=== PATIENT | female | born 1980 | race Hispanic/Latino ===

== ENCOUNTER 2017-10-15 11:44 | Emergency (ER) | payer SELFPAY ==
--- NOTE | 2017-10-15 12:09 | ER ---
Nurse's Notes [facility] Name: Hilary Mcmillan Age: 37 yrs Sex: Female : 1980 Arrival Date: 10/15/2017 Time: 11:49 Bed 11 Private MD: Diagnosis: Scabies Presentation: 10/15 12:05 Presenting complaint: Patient states: rash started on her arms at the end of August and sv has moved to her back. Transition of care: patient was not received from another setting of care. Onset of symptoms was August 2017. Initial Sepsis Screen: Does the patient meet any 2 criteria? No. Patient's initial sepsis screen is negative. Does the patient have a suspected source of infection? No. Patient's initial sepsis screen is negative. Care prior to arrival: None. 12:05 Method Of Arrival: Ambulatory sv 12:05 Acuity: USHA 5 sv 12:12 Risk Assessment: Do you want to hurt yourself or someone else? Patient reports no sv desire to harm self or others. Triage Assessment: 12:05 General: Appears in no apparent distress. comfortable, Behavior is calm, cooperative, sv appropriate for age. Pain: Denies pain. EENT: No signs and/or symptoms were reported regarding the EENT system. Neuro: Level of Consciousness is awake, alert, obeys commands, Oriented to person, place, time, situation, Moves all extremities. Full function Gait is steady. Respiratory: Respiratory effort is even, unlabored, Respiratory pattern is regular, symmetrical. GI: : No signs and/or symptoms were reported regarding the genitourinary system. Derm: Skin is normal, Rash noted that is raised, on back, right arm and left arm. Musculoskeletal: No signs and/or symptoms reported regarding the musculoskeletal system. 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 - Social history:: Smoking status: Patient/guardian denies using tobacco. - Ebola Screening: : No symptoms or risks identified at this time. Screenin:12 Abuse screen: Denies threats or abuse. Denies injuries from another. Nutritional sv screening: No deficits noted. Tuberculosis screening: No symptoms or risk factors identified. Fall Risk None identified. Assessment: 12:12 Reassessment: See triage assessment. sv Vital Signs: 12:06 BP 126 / 73; Pulse 88; Resp 18; Pulse Ox 100% ; Weight 81.65 kg; Height 5 ft. 4 in. sv (162.56 cm); Pain 0/10; 12:06 Body Mass Index 30.90 (81.65 kg, 162.56 cm) sv ED Course: 11:49 Patient arrived in ED. as 11:55 Ruperto Smiley PA is PHCP. [facility] 11:55 Diogo Leigh MD is Attending Physician. [facility] 12:05 Triage completed. sv 12:06 Arm band placed on right wrist. sv 12:11 Meagan Car RN is Primary Nurse. sv 12:12 Patient has correct armband on for positive identification. sv 12:13 No provider procedures requiring assistance completed. Patient did not have IV access sv during this emergency room visit. Administered Medications: No medications were administered Outcome: 12:08 Discharge ordered by . [facility] 12:25 Patient left the ED. sv 12:25 Discharged to home ambulatory. sv 12:25 Condition: stable 12:25 Discharge instructions given to patient, Instructed on discharge instructions, follow up and referral plans. medication usage, Demonstrated understanding of instructions, follow-up care, medications, Prescriptions given X 1. Signatures: Meagan Car RN RN Ruperto Smiley PA PA jmm Martinez, Amelia as
--- NOTE | 2017-10-15 12:09 | EDPHYS ---
Physician Documentation [facility] Name: Hilary Mcmillan Age: 37 yrs Sex: Female : 1980 Arrival Date: 10/15/2017 Time: 11:49 Bed 11 Private MD: ED Physician Diogo Leigh HPI: 10/15 12:00 This 37 yrs old Female presents to ER via Ambulatory with complaints of Rash. [facility] 12:00 The patient's rash thought to be caused by an unknown cause. The rash is located on the [facility] left arm and right arm and back. Onset: The symptoms/episode began/occurred gradually. Associated signs and symptoms: Pertinent positives: itching, Pertinent negatives: fever, Pain. Patient complains of a rash to her arms and back which is pruritic. The patient denies fever. The rash initially began around her hands and has spread to her back. The patient is concerned the rash may be due to scabies. . 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 - Social history:: Smoking status: Patient/guardian denies using tobacco. - Ebola Screening: : No symptoms or risks identified at this time. ROS: 12:07 Respiratory: Negative for shortness of breath, cough, wheezing, and pleuritic chest [facility] pain. 12:07 Constitutional: Negative for fever. 12:07 Skin: Positive for erythema, rash. 12:07 Neuro: Negative for weakness. 12:07 All other systems are negative. Exam: 12:07 Constitutional: This is a well developed, well nourished patient who is awake, alert, jmm and in no acute distress. Head/Face: atraumatic. Cardiovascular: Regular rate and rhythm. No edema appreciated Respiratory: Normal respirations, no respiratory distress appreciated Back: Normal ROM MS/ Extremity: Moves all extremities, no obvious deformities appreciated, no edema noted to the lower extremities Neuro: Awake and alert, normal gait Psych: Behavior is normal, Mood is normal, Patient is cooperative and pleasant 12:07 Skin: mild erythema appreciated to the forearms with linear streaking, non tender to palpation. 12:07 Neuro: Orientation: is normal, Mentation: is normal, Memory: is normal. Vital Signs: 12:06 BP 126 / 73; Pulse 88; Resp 18; Pulse Ox 100% ; Weight 81.65 kg; Height 5 ft. 4 in. sv (162.56 cm); Pain 0/10; 12:06 Body Mass Index 30.90 (81.65 kg, 162.56 cm) sv MDM: 12:04 Patient medically screened. [facility] 12:05 Data reviewed: vital signs, nurses notes. [facility] 12:07 Counseling: I had a detailed discussion with the patient and/or guardian regarding: the [facility] historical points, exam findings, and any diagnostic results supporting the discharge/admit diagnosis, the need for outpatient follow up, to return to the emergency department if symptoms worsen or persist or if there are any questions or concerns that arise at home. Administered Medications: No medications were administered Disposition: 17:53 Co-signature as Attending Physician, Diogo Leigh MD. rn Disposition: 10/15/17 12:08 Discharged to Home. Impression: Scabies. - Condition is Stable. - Discharge Instructions: Scabies. - Prescriptions for Elimite 5 % Topical Cream - apply 1 application by TOPICAL route one time Wash after 12 hours.; 60 gram. - Medication Reconciliation Form, Thank You Letter, Antibiotic Education, Prescription Opioid Use form. - Follow up: Private Physician; When: 2 - 3 days; Reason: Continuance of care. Signatures: Meagan Car RN RN Ruperto Smiley PA PA [facility] Diogo Leigh MD MD rn hemodialysis: (The following items were deleted from the chart) 12:25 12:08 10/15/2017 12:08 Discharged to Home. Impression: Scabies. Condition is Stable. sv Forms are Medication Reconciliation Form, Thank You Letter, Antibiotic Education, Prescription Opioid Use. Follow up: Private Physician; When: 2 - 3 days; Reason: Continuance of care. [facility]
[2017-10-15 12:29] VITALS: BP 126/73; O2SAT 100
== END 2017-10-15 12:25 | disposition home or self-care (01) ==
LOC: ER 11:44
DX: B86 Scabies (principal)
CPT/HCPCS: 99281

== ENCOUNTER 2017-12-01 14:14 | Emergency (ER) | payer BC, SELFPAY ==
[2017-12-01] MEDS ORDERED: ACETAMINOPHEN 500 MG TAB ONE (14:32)
--- NOTE | 2017-12-01 16:45 | EDPHYS ---
Physician Documentation [facility] Name: Hilary Mcmillan Age: 37 yrs Sex: Female : 1980 Arrival Date: 12/01/2017 Time: 14:16 Bed 11 Private MD: Iggy Graf ED Physician Iron Gonzalez HPI: 12/01 15:00 This 37 yrs old Female presents to ER via Ambulatory with complaints of Flu pm1 Symptoms. 15:00 The patient reports fever, not measured (subjective). Onset: The symptoms/episode pm1 began/occurred 2 day(s) ago. Modifying factors: Recent medications: none unaware of sick contact. Denies recent travel. Associated signs and symptoms: Pertinent positives: chills, earache, Pertinent negatives: abdominal pain, chest pain, cough, diarrhea, headache, skin rash, shortness of breath, sore throat, vomiting. Severity of symptoms: in the emergency department the symptoms are worse. The patient has not experienced similar symptoms in the past. Patient reports subjective fever over the weekend with chills. Complaining of generalized body aches and right ear pain. Complaining of lower extremity insect bites that occurred last night. 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 - Social history:: Smoking status: Patient/guardian denies using tobacco. - Ebola Screening: : Patient negative for fever greater than or equal to 101.5 degrees Fahrenheit, and additional compatible Ebola Virus Disease symptoms Patient denies exposure to infectious person Patient denies travel to an Ebola-affected area in the 21 days before illness onset No symptoms or risks identified at this time. ROS: 15:00 Neck: Negative for injury, pain, and swelling, Cardiovascular: Negative for chest pain, pm1 palpitations, and edema, Respiratory: Negative for shortness of breath, cough, wheezing, and pleuritic chest pain, Abdomen/GI: Negative for abdominal pain, nausea, vomiting, diarrhea, and constipation, Back: Negative for injury and pain, : Negative for injury, bleeding, discharge, and swelling, MS/Extremity: Negative for injury and deformity, Neuro: Negative for headache, weakness, numbness, tingling, and seizure. 15:00 Constitutional: Positive for body aches, chills, fever, Negative for poor PO intake. 15:00 ENT: Positive for ear pain, Negative for drainage from ear(s), Teeth pain sore throat. 15:00 Skin: Positive for rash, of the right lower leg. Exam: 15:00 Constitutional: This is a well developed, well nourished patient who is awake, alert, pm1 and in no acute distress. Head/Face: Normocephalic, atraumatic. Eyes: Pupils equal round and reactive to light, extra-ocular motions intact. Lids and lashes normal. Conjunctiva and sclera are non-icteric and not injected. Cornea within normal limits. Periorbital areas with no swelling, redness, or edema. 15:00 Chest/axilla: Normal chest wall appearance and motion. Nontender with no deformity. No lesions are appreciated. Cardiovascular: Regular rate and rhythm with a normal S1 and S2. No gallops, murmurs, or rubs. Normal PMI, no JVD. No pulse deficits. Respiratory: Lungs have equal breath sounds bilaterally, clear to auscultation and percussion. No rales, rhonchi or wheezes noted. No increased work of breathing, no retractions or nasal flaring. Abdomen/GI: Soft, non-tender, with normal bowel sounds. No distension or tympany. No guarding or rebound. No evidence of tenderness throughout. Back: No spinal tenderness. No costovertebral tenderness. Full range of motion. 15:00 MS/ Extremity: Pulses equal, no cyanosis. Neurovascular intact. Full, normal range of motion. 15:00 ENT: External ear(s): are unremarkable, Ear canal(s): are normal, TM's: bulging, on the right, erythema, on the right, fluid levels, on the right, rupture, is not appreciated, Nose: is normal, Mouth: is normal, Posterior pharynx: is normal, airway is patent, no erythema, no exudate, no peritonsilar mass, no pooling of secretions, no swelling. 15:00 Neck: External neck: no acute changes, C-spine: appears grossly normal, no vertebral tenderness, no crepitus. 15:00 Skin: Appearance: normal except for affected area, consistent with insect bites, mosquito, on the right bob. 15:00 Neuro: Orientation: is normal, Motor: is normal, moves all fours, Sensation: is normal, no obvious gross deficits, Gait: is steady, at a normal pace, without difficulty. Vital Signs: 14:24 BP 121 / 72; Pulse 107; Resp 16; Temp 100.7(O); Pulse Ox 99% on R/A; Weight 83.01 kg; ch Height 5 ft. 4 in. (162.56 cm); Pain 6/10; 17:15 BP 120 / 80; Pulse 89; Resp 18; Temp 99; Pulse Ox 100% on R/A; dm5 14:24 Body Mass Index 31.41 (83.01 kg, 162.56 cm) MDM: 15:13 Patient medically screened. pm1 16:44 Data reviewed: vital signs. Data interpreted: Pulse oximetry: on room air is 99 %. pm1 Interpretation: normal. Counseling: I had a detailed discussion with the patient and/or guardian regarding: the historical points, exam findings, and any diagnostic results supporting the discharge/admit diagnosis, lab results, the need for outpatient follow up, to return to the emergency department if symptoms worsen or persist or if there are any questions or concerns that arise at home. 12/01 14:26 Order name: Flu; Complete Time: 15:19 12/01 15:33 Order name: Graves Screen Profile; Complete Time: 16:44 pm1 Administered Medications: 14:26 Drug: Tylenol 1000 mg Route: PO; 17:16 Follow up: Response: No adverse reaction; Temperature is decreased dm5 Disposition: 12/01/17 16:45 Discharged to Home. Impression: Otitis media, unspecified, right ear. - Condition is Stable. - Discharge Instructions: Otitis Media, Adult. - Prescriptions for Amoxicillin 500 mg Oral Capsule - take 1 capsule by ORAL route every 8 hours for 10 days; 30 tablet. Zyrtec- D 5-120 mg Oral Tablet Sustained Release 12 hr - take 1 tablet by ORAL route every 12 hours As needed; 20 tablet. - Medication Reconciliation Form, Thank You Letter, Antibiotic Education form. - Follow up: Emergency Department; When: As needed; Reason: Worsening of condition. Follow up: Iggy Graf MD; When: 2 - 3 days; Reason: Recheck today's complaints, Continuance of care, Re-evaluation by your physician. - Problem is new. - Symptoms have improved. Addendum: 12/04/2017 10:12 Co-signature as Attending Physician, Iron Gonzalez MD I agree with the assessment and k dr plan of care. Signatures: Dispatcher [employer] EDMS Marisa Cordero, RN RN Dianne Renee RN RN dm Iron Gonzalez MD MD [facility] Octavio Garcia NP SUPERINTENDENT MAINTENANCE pm1 Corrections: (The following items were deleted from the chart) 12/01 17:16 16:45 12/01/2017 16:45 Discharged to Home. Impression: Otitis media, unspecified, right dm5 ear. Condition is Stable. Forms are Medication Reconciliation Form, Thank You Letter, Antibiotic Education, Prescription Opioid Use. Follow up: Emergency Department; When: As needed; Reason: Worsening of condition. Follow up: Iggy Graf; When: 2 - 3 days; Reason: Recheck today's complaints, Continuance of care, Re-evaluation by your physician. Problem is new. Symptoms have improved. pm1
--- NOTE | 2017-12-01 16:45 | ER ---
Nurse's Notes [facility] Name: Hilary Mcmillan Age: 37 yrs Sex: Female : 1980 Arrival Date: 12/01/2017 Time: 14:16 Bed 11 Private MD: Iggy Graf Diagnosis: Otitis media, unspecified, right ear Presentation: 12/01 14:22 Presenting complaint: Patient states: over the weekend I had chills and feverish ch feeling, I feel like there is something in my R ear. I have body aches all over. I woke up with some bites on my legs this morning. Transition of care: patient was not received from another setting of care. Onset of symptoms was November 29, 2017. Risk Assessment: Do you want to hurt yourself or someone else? Patient reports no desire to harm self or others. Initial Sepsis Screen: Does the patient meet any 2 criteria? No. Patient's initial sepsis screen is negative. Does the patient have a suspected source of infection? No. Patient's initial sepsis screen is negative. Care prior to arrival: None. 14:22 Method Of Arrival: Ambulatory 14:22 Acuity: USHA 4 Triage Assessment: 14:24 General: Appears in no apparent distress. comfortable, Behavior is calm, cooperative, ch appropriate for age. Pain: Complains of pain in right ear, generalized body ache. 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 - Social history:: Smoking status: Patient/guardian denies using tobacco. - Ebola Screening: : Patient negative for fever greater than or equal to 101.5 degrees Fahrenheit, and additional compatible Ebola Virus Disease symptoms Patient denies exposure to infectious person Patient denies travel to an Ebola-affected area in the 21 days before illness onset No symptoms or risks identified at this time. Screenin:15 Abuse screen: Denies threats or abuse. Denies injuries from another. Nutritional dm5 screening: No deficits noted. Tuberculosis screening: No symptoms or risk factors identified. Fall Risk None identified. Assessment: 15:15 General: Appears in no apparent distress. Behavior is calm, cooperative. Pain: Denies dm5 pain. Neuro: Level of Consciousness is awake, alert, obeys commands, Oriented to person, place, time. Respiratory: Airway is patent. Vital Signs: 14:24 BP 121 / 72; Pulse 107; Resp 16; Temp 100.7(O); Pulse Ox 99% on R/A; Weight 83.01 kg; ch Height 5 ft. 4 in. (162.56 cm); Pain 6/10; 17:15 BP 120 / 80; Pulse 89; Resp 18; Temp 99; Pulse Ox 100% on R/A; dm5 14:24 Body Mass Index 31.41 (83.01 kg, 162.56 cm) ED Course: 14:16 Patient arrived in ED. sb2 14:16 Iggy Graf MD is Private Physician. sb2 14:23 Triage completed. 14:25 Arm band placed on left wrist. Patient placed in waiting room. 15:12 Octavio Garcia NP is [facility]. pm1 15:13 Iron Gonzalez MD is Attending Physician. pm1 15:15 Patient has correct armband on for positive identification. dm5 15:15 No provider procedures requiring assistance completed. Patient did not have IV access dm5 during this emergency room visit. 16:44 Iggy Graf MD is Referral Physician. pm1 17:11 Dianne Renee, RN is Primary Nurse. dm5 Administered Medications: 14:26 Drug: Tylenol 1000 mg Route: PO; 17:16 Follow up: Response: No adverse reaction; Temperature is decreased dm5 Outcome: 16:45 Discharge ordered by MD. pm1 17:14 Discharged to home ambulatory. dm5 17:14 Condition: good 17:14 Discharge instructions given to patient, Instructed on discharge instructions, follow up and referral plans. medication usage, Demonstrated understanding of instructions, follow-up care, medications, Prescriptions given X 2. 17:16 Patient left the ED. dm5 Signatures: Marisa Cordero RN RN Dianne Renee RN RN dm5 Octavio Garcia NP COAL CRUSHER OPERATOR pm1 Billeau, Maile sb2
[2017-12-01 17:36] VITALS: BP 120/80; TEMP 99; O2SAT 100
== END 2017-12-01 17:16 | disposition home or self-care (01) ==
LOC: ER 14:14
DX: H66.91 Otitis media, unspecified, right ear (principal)
CPT/HCPCS: 36415; 86308; 87804; 99283

== ENCOUNTER 2017-12-06 15:37 | Emergency (ER) | payer BC ==
[2017-12-06] MEDS ORDERED: KETOROLAC 30 MG/ML INJ ONE (20:44)
--- NOTE | 2017-12-06 21:25 | ER ---
Nurse's Notes [facility] Name: Hilary Mcmillan Age: 37 yrs Sex: Female : 1980 Arrival Date: 12/06/2017 Time: 15:39 Bed 18 Private MD: Iggy Graf Diagnosis: Pain in unspecified joint;Folliculitis - bilateral lower legs Presentation: 12/06 15:45 Presenting complaint: Patient states: joint pain and swelling started a few days ago. sv Motrin 200 mg 5 tabs taken over an hour ago. Pt was seen here Friday for ear pain and sent home with Amoxicillin and Zyrtec D. Transition of care: patient was not received from another setting of care. Onset of symptoms was November 2017. Care prior to arrival: None. 15:45 Method Of Arrival: Ambulatory sv 15:45 Acuity: USHA 4 sv 21:53 Risk Assessment: Do you want to hurt yourself or someone else? Patient reports no bp desire to harm self or others. Initial Sepsis Screen: Does the patient meet any 2 criteria? No. Patient's initial sepsis screen is negative. Does the patient have a suspected source of infection? No. Patient's initial sepsis screen is negative. 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 - Social history:: Smoking status: Patient/guardian denies using tobacco. - Ebola Screening: : No symptoms or risks identified at this time. Screenin:08 Abuse screen: Denies threats or abuse. Denies injuries from another. Nutritional bp screening: No deficits noted. Tuberculosis screening: No symptoms or risk factors identified. Fall Risk None identified. Assessment: 19:00 General: Appears in no apparent distress. comfortable, Behavior is cooperative, bp appropriate for age, flat. General: 37YO HF P/W GENERALIZED JOINT PAIN SINCE LAST PM. NO OBJECTIVE FINDINGS, VS STABLE ON MONITOR. Pain: Complains of pain in GENERALIZED. Neuro: Level of Consciousness is awake, alert, obeys commands, Oriented to person, place, time, situation, Appropriate for age. Cardiovascular: No deficits noted. Respiratory: Airway is patent Respiratory effort is even, unlabored, Respiratory pattern is regular, symmetrical. GI: No signs and/or symptoms were reported involving the gastrointestinal system. : No signs and/or symptoms were reported regarding the genitourinary system. EENT: No deficits noted. Derm: No deficits noted. Musculoskeletal: No deficits noted. 21:52 Reassessment: PT D/C HOME WITH FAMILY, DX WITH JOINT PAIN AND FOLLICULITIS. bp Vital Signs: 15:47 BP 105 / 62; Pulse 96; Resp 20; Temp 98.3; Pulse Ox 99% ; Weight 80.29 kg; Height 5 ft. sv 4 in. (162.56 cm); Pain 3/10; 19:00 BP 98 / 65; Pulse 74; Resp 16; Pulse Ox 99% ; bp 20:00 BP 98 / 61; Pulse 73; Resp 16; Pulse Ox 99% ; bp 21:50 BP 95 / 62; Pulse 67; Resp 14; Pulse Ox 99% ; bp 15:47 Body Mass Index 30.38 (80.29 kg, 162.56 cm) sv ED Course: 15:39 Patient arrived in ED. sb2 15:40 Iggy Graf MD is Private Physician. sb2 15:47 Triage completed. sv 15:50 Arm band placed on right wrist. Patient placed in waiting room, Patient notified of sv wait time. 18:17 Laura Dia RN is Primary Nurse. rb1 18:51 Octavio Garcia NP is PHCP. pm1 18:51 Bryan Scott MD is Attending Physician. pm1 19:08 Patient has correct armband on for positive identification. Bed in low position. Call bp light in reach. Side rails up X2. 20:34 Primary Nurse role handed off by Laura Dia RN bp 20:34 Iggy Lacey, MASTER is Primary Nurse. bp 21:23 Iggy Graf MD is Referral Physician. pm1 21:51 No provider procedures requiring assistance completed. Patient did not have IV access bp during this emergency room visit. Administered Medications: 20:35 Drug: TORadol 60 mg Route: IM; Site: right gluteus; bp 21:53 Follow up: Response: No adverse reaction; Pain is decreased bp Outcome: 21:25 Discharge ordered by MD. pm1 21:52 Discharged to home ambulatory, with family. bp 21:52 Condition: stable 21:52 Instructed on Demonstrated understanding of instructions, follow-up care, medications. 21:52 Discharge instructions given to patient, Instructed on discharge instructions, follow up and referral plans. medication usage, Demonstrated understanding of instructions, follow-up care, medications, Prescriptions given X 3. 21:56 Patient left the ED. ak1 Signatures: Meagan Car RN RN sv Emili Aragon RN RN ak1 Laura Dia RN RN rb1 Octavio Garcia NP SPECIAL AGENT [employer] pm1 Iggy Lacey RN RN bp Maile Mas sb2 Corrections: (The following items were deleted from the chart) 15:50 15:47 Pulse 96bpm; Resp 20bpm; Pulse Ox 99%; Temp 98.3F; 80.29 kg; Height 5 ft. 4 in.; sv BMI: 30.3; Pain 3/10; sv 21:53 21:51 Discharged to home ambulatory, with family, bp bp 21:53 21:51 Condition: stable bp bp 21:53 21:51 Discharge instructions given to patient, Instructed on discharge instructions, bp follow up and referral plans. bp
--- NOTE | 2017-12-06 21:25 | EDPHYS ---
Physician Documentation [facility] Name: Hilary Mcmillan Age: 37 yrs Sex: Female : 1980 Arrival Date: 12/06/2017 Time: 15:39 Bed 18 Private MD: Iggy Graf ED Physician Bryan Scott HPI: 12/06 21:00 This 37 yrs old Female presents to ER via Ambulatory with complaints of Pain pm1 All Over. 21:00 Associated signs and symptoms: Pertinent negatives: abdominal pain, diarrhea, dysuria, pm1 earache, fever, headache, shortness of breath, sore throat, vomiting. The patient has been recently seen at the [facility] Emergency Department, this week. Patient was seen here 5 days ago and diagnosed with otitis media and prescribed amoxicillin and Zyrtec. Patient with onset of body aches and joint pain onset yesterday. Patient also complaining of bumps to her legs that started a few days after shaving her legs. 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 - Social history:: Smoking status: Patient/guardian denies using tobacco. - Ebola Screening: : No symptoms or risks identified at this time. ROS: 21:00 Constitutional: Negative for fever, chills, and weight loss, Eyes: Negative for injury, pm1 pain, redness, and discharge, ENT: Negative for injury, pain, and discharge, Neck: Negative for injury, pain, and swelling, Cardiovascular: Negative for chest pain, palpitations, and edema, Respiratory: Negative for shortness of breath, cough, wheezing, and pleuritic chest pain, Abdomen/GI: Negative for abdominal pain, nausea, vomiting, diarrhea, and constipation, Back: Negative for injury and pain. 21:00 Neuro: Negative for headache, weakness, numbness, tingling, and seizure. 21:00 MS/extremity: Positive for Joint pain - ankles, knees, hips and back, Negative for injury or acute deformity, decreased range of motion. 21:00 Skin: Positive for rash, of the right leg and left leg. Exam: 21:00 Constitutional: This is a well developed, well nourished patient who is awake, alert, pm1 and in no acute distress. Head/Face: Normocephalic, atraumatic. Eyes: Pupils equal round and reactive to light, extra-ocular motions intact. Lids and lashes normal. Conjunctiva and sclera are non-icteric and not injected. Cornea within normal limits. Periorbital areas with no swelling, redness, or edema. ENT: Nares patent. No nasal discharge, no septal abnormalities noted. Tympanic membranes are normal and external auditory canals are clear. Oropharynx with no redness, swelling, or masses, exudates, or evidence of obstruction, uvula midline. Mucous membranes moist. Neck: Trachea midline, no thyromegaly or masses palpated, and no cervical lymphadenopathy. Supple, full range of motion without nuchal rigidity, or vertebral point tenderness. No Meningismus. Chest/axilla: Normal chest wall appearance and motion. Nontender with no deformity. No lesions are appreciated. 21:00 Cardiovascular: Regular rate and rhythm with a normal S1 and S2. No gallops, murmurs, or rubs. No pulse deficits. Respiratory: Lungs have equal breath sounds bilaterally, clear to auscultation and percussion. No rales, rhonchi or wheezes noted. No increased work of breathing, no retractions or nasal flaring. Abdomen/GI: Soft, non-tender, with normal bowel sounds. No distension or tympany. No guarding or rebound. No evidence of tenderness throughout. Back: No spinal tenderness. No costovertebral tenderness. Full range of motion. 21:00 Musculoskeletal/extremity: Extremities: grossly normal except: noted in the bilateral ankles, knees, and hips: 21:00 Skin: Appearance: normal except for affected area, consistent with folliculitis, on the right leg and left leg. Vital Signs: 15:47 BP 105 / 62; Pulse 96; Resp 20; Temp 98.3; Pulse Ox 99% ; Weight 80.29 kg; Height 5 ft. sv 4 in. (162.56 cm); Pain 3/10; 19:00 BP 98 / 65; Pulse 74; Resp 16; Pulse Ox 99% ; bp 20:00 BP 98 / 61; Pulse 73; Resp 16; Pulse Ox 99% ; bp 21:50 BP 95 / 62; Pulse 67; Resp 14; Pulse Ox 99% ; bp 15:47 Body Mass Index 30.38 (80.29 kg, 162.56 cm) sv MDM: 18:51 Patient medically screened. pm1 21:22 Data reviewed: vital signs. Data interpreted: Pulse oximetry: on room air is 99 %. pm1 Interpretation: normal. Counseling: I had a detailed discussion with the patient and/or guardian regarding: the historical points, exam findings, and any diagnostic results supporting the discharge/admit diagnosis, lab results, the need for outpatient follow up, to return to the emergency department if symptoms worsen or persist or if there are any questions or concerns that arise at home. 12/06 19:02 Order name: Flu; Complete Time: 20:18 pm1 Administered Medications: 20:35 Drug: TORadol 60 mg Route: IM; Site: right gluteus; bp 21:53 Follow up: Response: No adverse reaction; Pain is decreased bp Disposition: 12/06/17 21:25 Discharged to Home. Impression: Pain in unspecified joint, Folliculitis - bilateral lower legs. - Condition is Stable. - Discharge Instructions: Musculoskeletal Pain, Folliculitis. - Prescriptions for Diclofenac Sodium 75 mg Oral Tablet Sustained Release - take 1 tablet by ORAL route 2 times per day; 30 tablet. Bactroban 2 % Topical Ointment - Apply to affected area 1 application by TOPICAL route every 12 hours; 30 gram. Bactrim DS 800- 160 mg Oral Tablet - take 1 tablet by ORAL route every 12 hours for 10 days; 20 tablet. - Medication Reconciliation Form, Thank You Letter, Antibiotic Education form. - Follow up: Emergency Department; When: As needed; Reason: Worsening of condition. Follow up: Iggy Graf MD; When: 2 - 3 days; Reason: Recheck today's complaints, Continuance of care, Re-evaluation by your physician. - Problem is new. - Symptoms have improved. Addendum: 12/08/2017 11:26 Co-signature as Attending Physician, Bryan Scott MD I agree with the assessment and w a plan of care. Signatures: Dispatcher [employer] Meagan Griffin RN RN Emili Aragon RN RN ak1 Octavio Garcia, LAST MODEL DEPARTMENT SUPERVISOR LAST MODEL DEPARTMENT SUPERVISOR pm1 Bryan Scott MD MD wa Peltier, Brian, RN RN bp Corrections: (The following items were deleted from the chart) 12/06 21:26 21:25 12/06/2017 21:25 Discharged to Home. Impression: Pain in unspecified joint. pm1 Condition is Stable. Forms are Medication Reconciliation Form, Thank You Letter, Antibiotic Education, Prescription Opioid Use. Follow up: Emergency Department; When: As needed; Reason: Worsening of condition. Follow up: Iggy Graf; When: 2 - 3 days; Reason: Recheck today's complaints, Continuance of care, Re-evaluation by your physician. Problem is new. Symptoms have improved. pm1 21:43 21:26 12/06/2017 21:25 Discharged to Home. Impression: Pain in unspecified joint; pm1 Myalgia. Condition is Stable. Discharge Instructions: Musculoskeletal Pain. Forms are Medication Reconciliation Form, Thank You Letter, Antibiotic Education, Prescription Opioid Use. Follow up: Emergency Department; When: As needed; Reason: Worsening of condition. Follow up: Iggy Graf; When: 2 - 3 days; Reason: Recheck today's complaints, Continuance of care, Re-evaluation by your physician. Problem is new. Symptoms have improved. pm1 21:56 21:43 12/06/2017 21:25 Discharged to Home. Impression: Pain in unspecified joint; ak1 Folliculitis - bilateral lower legs. Condition is Stable. Discharge Instructions: Musculoskeletal Pain, Folliculitis. Prescriptions for Diclofenac Sodium 75 mg Oral Tablet Sustained Release - take 1 tablet by ORAL route 2 times per day; 30 tablet, Bactroban 2 % Topical Ointment - Apply to affected area 1 application by TOPICAL route every 12 hours; 30 gram, Bactrim DS 800-160 mg Oral Tablet - take 1 tablet by ORAL route every 12 hours for 10 days; 20 tablet. and Forms are Medication Reconciliation Form, Thank You Letter, Antibiotic Education. Follow up: Emergency Department; When: As needed; Reason: Worsening of condition. Follow up: Iggy Graf; When: 2 - 3 days; Reason: Recheck today's complaints, Continuance of care, Re-evaluation by your physician. Problem is new. Symptoms have improved. pm1
[2017-12-06 22:00] VITALS: TEMP 98.3; O2SAT 99
[2017-12-06 22:04] VITALS: BP 95/62
== END 2017-12-06 21:56 | disposition home or self-care (01) ==
LOC: ER 15:37
DX: L73.9 Follicular disorder, unspecified (principal); M25.50 Pain in unspecified joint
CPT/HCPCS: 87804; 96372; 99283

== ENCOUNTER 2017-12-09 07:21 | Observation (INO) | payer BC ==
[2017-12-09] MEDS ORDERED: NA CHLORIDE 0.9% 1,000 ML ONE (08:12)
[2017-12-09 08:55] LABS: Absolute Lymphocytes (CBC) 2.3 K/uL (0.7-4.9); Absolute Monocytes 0.9 K/uL (0.1-1.3); Basophils % 0.5 % (0-1.3); Eosinophils % 1.7 % (0-4.4); Hematocrit 31.9 % (36.0-45.0); Lymphocytes % 21.7 % (15.3-44.8); MCH 25.5 pg (27.0-35.0); MCV 76.7 fL (80-100); MPV 8.5 fL (7.6-11.3); Monocytes % 8.7 % (3.3-12.3); RBC Red Blood Cell Count 4.16 M/uL (3.86-4.86)
[2017-12-09 09:11] LABS: ALT/SGPT 16 U/L (12-78); AST/SGOT 13 U/L (15-37); Albumin 3.2 g/dL (3.4-5.0); Alkaline Phosphatase 69 U/L (45-117); BUN Blood Urea Nitrogen 7 mg/dL (7-18); Bicarbonate 25 mmol/L (21-32); Bilirubin Direct < 0.1 mg/dL (0-0.2); Bilirubin Total 0.3 mg/dL (0.2-1.0); Glucose Level 92 mg/dL (74-106); Potassium 3.5 mmol/L (3.5-5.1); Protein, Total 7.9 g/dL (6.4-8.2); Sodium Level 140 mmol/L (136-145)
[2017-12-09 10:07] LABS: Urine Blood NEGATIVE (NEG); Urine Glucose NEGATIVE (NEG); Urine Protein NEGATIVE (NEG); Urine pH 8.5 (5.0-7.0)
[2017-12-09 10:10] LABS: Urine Bacteria <20 /HPF (<20); Urine RBC <5 /HPF (NONE SEEN)
[2017-12-09 10:11] LABS: Urine Culture Reflex Order NOT NEEDED; Urine Yeast FEW (NONE SEEN)
[2017-12-09] MEDS ORDERED: DOXYCYCLINE 100 MG CAP PO ONE (11:59)
--- NOTE | 2017-12-09 12:02 | EDPHYS ---
Physician Documentation [facility] Name: Hilary Mcmillan Age: 37 yrs Sex: Female : 1980 Arrival Date: 12/09/2017 Time: 07:24 Bed 19 Private MD: Iggy Graf ED Physician Iron Gonzalez HPI: 12/09 12:01 This 37 yrs old Female presents to ER via Wheelchair with complaints of Pain snw All Over. 12:01 Onset: The symptoms/episode began/occurred gradually, 2 week(s) ago, and became worse 2 snw day(s) ago, and became persistent. Associated signs and symptoms: Pertinent positives: headache, pain all over. Modifying factors: The patient symptoms are alleviated by nothing, the patient symptoms are aggravated by movement, weight bearing. The patient has not experienced similar symptoms in the past. The patient has been recently seen at the [facility] Emergency Department, x 2, 12/01 and 12/06, and then today. 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 - Social history:: Smoking status: Patient/guardian denies using tobacco. - Ebola Screening: : Patient negative for fever greater than or equal to 101.5 degrees Fahrenheit, and additional compatible Ebola Virus Disease symptoms Patient denies exposure to infectious person Patient denies travel to an Ebola-affected area in the 21 days before illness onset No symptoms or risks identified at this time. ROS: 11:59 Eyes: Negative for injury, pain, redness, and discharge, ENT: Negative for injury, snw pain, and discharge, Neck: Negative for injury, pain, and swelling, Cardiovascular: Negative for chest pain, palpitations, and edema, Respiratory: Negative for shortness of breath, cough, wheezing, and pleuritic chest pain, Abdomen/GI: Negative for abdominal pain, nausea, vomiting, diarrhea, and constipation, Back: Negative for injury and pain, Skin: Negative for injury, rash, and discoloration, Neuro: Negative for headache, weakness, numbness, tingling, and seizure. 11:59 Constitutional: Positive for body aches, fatigue, malaise, poor PO intake. 11:59 MS/extremity: Positive for decreased range of motion, pain, swelling, all joints/all over. Exam: 11:55 Head/Face: Normocephalic, atraumatic. Eyes: Pupils equal round and reactive to light, snw extra-ocular motions intact. Lids and lashes normal. Conjunctiva and sclera are non-icteric and not injected. Cornea within normal limits. Periorbital areas with no swelling, redness, or edema. ENT: Nares patent. No nasal discharge, no septal abnormalities noted. Tympanic membranes are normal and external auditory canals are clear. Oropharynx with no redness, swelling, or masses, exudates, or evidence of obstruction, uvula midline. Mucous membranes moist. Neck: Trachea midline, no thyromegaly or masses palpated, and no cervical lymphadenopathy. Supple, full range of motion without nuchal rigidity, or vertebral point tenderness. No Meningismus. Chest/axilla: Normal chest wall appearance and motion. Nontender with no deformity. No lesions are appreciated. Cardiovascular: Regular rate and rhythm with a normal S1 and S2. No gallops, murmurs, or rubs. Normal PMI, no JVD. No pulse deficits. Respiratory: Lungs have equal breath sounds bilaterally, clear to auscultation and percussion. No rales, rhonchi or wheezes noted. No increased work of breathing, no retractions or nasal flaring. Abdomen/GI: Soft, non-tender, with normal bowel sounds. No distension or tympany. No guarding or rebound. No evidence of tenderness throughout. Back: No spinal tenderness. No costovertebral tenderness. Full range of motion. 11:55 Constitutional: The patient appears alert, awake, anxious, uncomfortable. 11:55 Musculoskeletal/extremity: Extremities: wrists, hips, knees, and ankles with edema, painful ROM, unable to weight bear, ROM: limited active range of motion due to pain, limited passive range of motion due to pain, Circulation is intact in all extremities. Severe pain noted. 11:55 Skin: Appearance: normal except for affected area, ecchymosis, that are moderate, swelling, noted on the left foot, ankles L>R, knees, wrists, , that are moderate, rash can be described as erythematous, macular, appear bruised. 11:55 Neuro: Orientation: is normal, Mentation: is normal, Memory: is normal, Sensation: tenderness over rash and all joints, Gait: needs assistance, unable to bear weight. Vital Signs: 07:36 BP 114 / 68; Pulse 85; Resp 16; Temp 99.3; Pulse Ox 99% on R/A; Weight 81.19 kg; Height ch 5 ft. 4 in. (162.56 cm); Pain 10/10; 08:00 BP 108 / 61; Pulse 83; Resp 14; Pulse Ox 99% on R/A; jl7 09:14 BP 121 / 71; Pulse 78; Resp 16; Temp 99.3(O); Pulse Ox 99% ; jl7 10:13 BP 111 / 57; Pulse 74; Resp 16 S; Pulse Ox 98% on R/A; jl7 11:00 BP 114 / 64; Pulse 75; Resp 16; Pulse Ox 100% ; jl7 11:30 BP 116 / 67; Pulse 82; Resp 14; Pulse Ox 99% on R/A; jl7 12:32 BP 108 / 60; Pulse 70; Resp 16; Pulse Ox 100% ; jl7 14:14 BP 114 / 66; Pulse 90; Resp 17; Pulse Ox 100% on R/A; mh5 07:36 Body Mass Index 30.72 (81.19 kg, 162.56 cm) ch MDM: 07:51 Patient medically screened. snw 11:48 Data reviewed: vital signs, nurses notes. Data interpreted: Pulse oximetry: on room air snw is 98 %. Interpretation: normal. Counseling: I had a detailed discussion with the patient and/or guardian regarding: the historical points, exam findings, and any diagnostic results supporting the discharge/admit diagnosis, lab results, radiology results, the need for further work-up and treatment in the hospital. Physician consultation: Drew Billingsley MD was called at 11:48, was contacted at 11:48, regarding admission, to the medical/surgical unit. 12:03 ED course: Discussed pt presentation, management with Dr. Gonzalez, agrees with plan of snw care. 12/09 07:56 Order name: Basic Metabolic Panel; Complete Time: 09:13 snw 12/09 07:56 Order name: CBC with Diff; Complete Time: 09:13 snw 12/09 07:56 Order name: Hepatic Function; Complete Time: 09:13 snw 12/09 07:56 Order name: Urine Microscopic Only; Complete Time: 10:20 snw 12/09 07:56 Order name: Misc. Lab Test snw 12/09 07:56 Order name: Blood Culture Adult (2) snw 12/09 08:03 Order name: Strep; Complete Time: 09:24 snw 12/09 08:04 Order name: Lactate; Complete Time: 09:13 snw 12/09 08:04 Order name: Procalcitonin; Complete Time: 09:31 snw 12/09 08:04 Order name: CRP; Complete Time: 09:19 snw 12/09 08:04 Order name: Urine Culture snw 12/09 08:11 Order name: Anti-Streptolysin O Antibody EDMI 12/09 08:06 Order name: Echo w/ Doppler snw 12/09 08:11 Order name: Lyme Ab Reflex IgM,IgG EDMI 12/09 09:16 Order name: Urine Dipstick--Ancillary (enter results); Complete Time: 10:20 bd 12/09 09:16 Order name: Urine --Ancillary (enter results); Complete Time: 10:20 bd 12/09 09:24 Order name: Throat Culture EDMS 12/09 11:53 Order name: GC (GONORR/CHLAMYDIA) Probe: urine snw 12/09 12:17 Order name: GC (Sudhir/Chl) Probe URINE EDMS 12/09 12:30 Order name: CONS Physician Consult EDMS 12/09 12:30 Order name: Regular; Complete Time: 13:13 EDMS 12/09 12:30 Order name: CBC with Automated Diff EDMS 12/09 12:30 Order name: CBC with Automated Diff EDMS 12/09 12:30 Order name: Comprehensive Metabolic Panel EDMS 12/09 12:30 Order name: Comprehensive Metabolic Panel EDMS 12/09 07:56 Order name: IV Saline Lock; Complete Time: 08:38 snw 12/09 07:56 Order name: Labs collected and sent; Complete Time: 08:38 snw 12/09 07:56 Order name: Urine Dipstick-Ancillary (obtain specimen); Complete Time: 09:24 snw Administered Medications: 08:38 Drug: NS 0.9% 1000 ml Route: IV; Rate: 1 bolus; Site: left antecubital; jl7 10:00 Follow up: IV Status: Completed infusion jl7 12:10 Drug: Doxycycline 100 mg Route: PO; jl7 13:13 Follow up: Response: No adverse reaction jl7 Disposition: 16:36 Co-signature as Attending Physician, Iron Gonzalez MD I agree with the assessment and kdr plan of care. Disposition: 12/09/17 12:01 Hospitalization ordered by Drew Billingsley for Inpatient Admission. Preliminary diagnosis are Joint disorder, unspecified, Inflammatory and immune myopathies, not elsewhere classified. - Bed requested for Telemetry/MedSurg (Inpatient). - Status is Inpatient Admission. jl7 - Condition is Fair. - Problem is new. - Symptoms have worsened. UTI on Admission? No Signatures: Dispatcher [employer] EDMI La Maravilla Christina, RN RN Iron Gonzalez MD MD [facility] Mirtha Chinchilla, STOCKLAYER-C STOCKLAYER-Csnw Ike Burdick RN RN jl7 Corrections: (The following items were deleted from the chart) 07:57 07:56 Miscellaneous Lab Test+R.LAB.BRZ ordered. EDMI EDMS 08:11 08:04 Miscellaneous Lab Test+R.LAB.BRZ ordered. EDMI EDMS 12:17 11:54 GC (Sudhir/Chl) Probe CX/URE ordered. EDMI EDMS 15:05 12:01 Hospitalization Ordered by Drew Billingsley MD for Inpatient Admission. Preliminary bd diagnosis is Joint disorder, unspecified; Inflammatory and immune myopathies, not elsewhere classified. Bed requested for Telemetry/MedSurg (Inpatient). Status is Inpatient Admission. Condition is Fair. Problem is new. Symptoms have worsened. UTI on Admission? No. snw 15:38 15:05 12/09/2017 12:01 Hospitalization Ordered by Drew Billingsley MD for Inpatient jl7 Admission. Preliminary diagnosis is Joint disorder, unspecified; Inflammatory and immune myopathies, not elsewhere classified. Bed requested for Telemetry/MedSurg (Inpatient). Status is Inpatient Admission. Condition is Fair. Problem is new. Symptoms have worsened. UTI on Admission? No. bd
--- NOTE | 2017-12-09 12:02 | ER ---
Nurse's Notes [facility] Name: Hilary Mcmillan Age: 37 yrs Sex: Female : 1980 Arrival Date: 12/09/2017 Time: 07:24 Bed 19 Private MD: Iggy Graf Diagnosis: Joint disorder, unspecified;Inflammatory and immune myopathies, not elsewhere classified Presentation: 12/09 07:33 Presenting complaint: Patient states: I was seen here Friday and the Friday before that. two weekends ago I started with fevers and chills, the next few days got bumps on my legs, yall didn't diagnose me right, I know you are wrong because its all getting worse. I didn't start Saturdays medications because they told me not to till i finished Mondays medications. they said maybe mono. Im concerned because I work in a [employer]. my joints are all swollen and hurt so much now I can barley move. Transition of care: patient was not received from another setting of care. Onset of symptoms was December 01, 2017. Risk Assessment: Do you want to hurt yourself or someone else? Patient reports no desire to harm self or others. Initial Sepsis Screen: Does the patient meet any 2 criteria? No. Patient's initial sepsis screen is negative. Does the patient have a suspected source of infection? No. Patient's initial sepsis screen is negative. Care prior to arrival: None. 07:33 Method Of Arrival: Wheelchair 07:33 Acuity: USHA 3 Triage Assessment: 07:36 General: Appears in no apparent distress. uncomfortable, Behavior is anxious, restless. 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 - Social history:: Smoking status: Patient/guardian denies using tobacco. - Ebola Screening: : Patient negative for fever greater than or equal to 101.5 degrees Fahrenheit, and additional compatible Ebola Virus Disease symptoms Patient denies exposure to infectious person Patient denies travel to an Ebola-affected area in the 21 days before illness onset No symptoms or risks identified at this time. Screenin:45 Abuse screen: Denies threats or abuse. Denies injuries from another. Nutritional jl7 screening: No deficits noted. Tuberculosis screening: No symptoms or risk factors identified. Fall Risk IV access (20 points). Gait- Weak (10 pts.). Total Clarke Fall Scale indicates Low Risk Score (25-44 pts). Fall prevention measures have been instituted. Side Rails Up X 2 Placed close to Nursing Station Frequent Obs/Assesments occuring Family Present and informed to notify staff if they need to leave bedside As available Patient and Family Educated on Fall Prevention Program and strategies. Assessment: 07:45 General: Appears in no apparent distress. uncomfortable, Behavior is cooperative. Pain: jl7 Complains of pain in bilateral hips, knees and ankles. Pain currently is 6 out of 10 on a pain scale. at worst was 10 out of 10 on a pain scale. Is continuous, Aggravated by increased activity, repositioning, weight bearing. Neuro: Level of Consciousness is awake, alert, obeys commands, Oriented to person, place, time. Cardiovascular: Heart tones S1 S2 present Patient's skin is warm and dry. Respiratory: Airway is patent Respiratory effort is even, unlabored, Respiratory pattern is regular, symmetrical, Breath sounds are clear bilaterally. GI: No signs and/or symptoms were reported involving the gastrointestinal system. : No signs and/or symptoms were reported regarding the genitourinary system. EENT: No signs and/or symptoms were reported regarding the EENT system. Derm: Skin is pink, warm \T\ dry. red, warm and raised spots noted to bilateral legs. Musculoskeletal: Reports pain in joints. 09:00 Reassessment: Patient appears in no apparent distress at this time. Patient and/or jl7 family updated on plan of care and expected duration. Pain level reassessed. Patient is alert, oriented x 3, equal unlabored respirations, skin warm/dry/pink. 10:14 Reassessment: pt laying in bed with eyes closed, respirations even and unlabored, no jl7 signs of distress noted at this time. 11:30 Reassessment: Dr. Gonzalez at bedside discussing plan of care. jl7 12:29 Reassessment: Patient and/or family updated on plan of care and expected duration. Pain jl7 level reassessed. Patient is alert, oriented x 3, equal unlabored respirations, skin warm/dry/pink. Vital Signs: 07:36 BP 114 / 68; Pulse 85; Resp 16; Temp 99.3; Pulse Ox 99% on R/A; Weight 81.19 kg; Height 5 ft. 4 in. (162.56 cm); Pain 10/10; 08:00 BP 108 / 61; Pulse 83; Resp 14; Pulse Ox 99% on R/A; jl7 09:14 BP 121 / 71; Pulse 78; Resp 16; Temp 99.3(O); Pulse Ox 99% ; jl7 10:13 BP 111 / 57; Pulse 74; Resp 16 S; Pulse Ox 98% on R/A; jl7 11:00 BP 114 / 64; Pulse 75; Resp 16; Pulse Ox 100% ; jl7 11:30 BP 116 / 67; Pulse 82; Resp 14; Pulse Ox 99% on R/A; jl7 12:32 BP 108 / 60; Pulse 70; Resp 16; Pulse Ox 100% ; jl7 14:14 BP 114 / 66; Pulse 90; Resp 17; Pulse Ox 100% on R/A; mh5 07:36 Body Mass Index 30.72 (81.19 kg, 162.56 cm) ED Course: 07:24 Patient arrived in ED. rg4 07:24 Iggy Graf MD is Private Physician. rg4 07:35 Triage completed. ch 07:36 Arm band placed on left wrist. Patient placed in an exam room. 07:44 [facility]inch[facility]C [facility] snw 07:44 Iron Gonzalez MD is Attending Physician. snw 07:45 Patient has correct armband on for positive identification. Placed in gown. Bed in low jl7 position. Call light in reach. Side rails up X2. Pulse ox on. NIBP on. Warm blanket given. 07:49 Ike Burdick RN is Primary Nurse. jl7 08:15 Initial lab(s) drawn, by ak, sent to lab. Urine collected: clean catch specimen. jl7 Inserted saline lock: 22 gauge in left antecubital area, using aseptic technique. Blood collected. 12:00 Drew Billingsley MD is Hospitalizing Provider. snw 15:38 No provider procedures requiring assistance completed. Patient admitted, IV remains in jl7 place. intact, No redness/swelling at site. Administered Medications: 08:38 Drug: NS 0.9% 1000 ml Route: IV; Rate: 1 bolus; Site: left antecubital; jl7 10:00 Follow up: IV Status: Completed infusion jl7 12:10 Drug: Doxycycline 100 mg Route: PO; jl7 13:13 Follow up: Response: No adverse reaction jl7 Outcome: 12:01 Decision to Hospitalize by Provider. snw 15:37 Admitted to Med/surg accompanied by tech, via wheelchair, room 224, with chart, Report jl7 called to MASTER Silva 15:37 Condition: stable 15:37 Discharge instructions given to patient, Instructed on the need for admit, Demonstrated understanding of instructions. 15:38 Patient left the ED. jl7 Signatures: Marisa Cordero, RN RN Mirtha Keane, FLIGHT KITCHEN MANAGER-C FLIGHT KITCHEN MANAGER-Crissyw Kassi Valdovinos 4 Tamie Pedersen [facility] Ike Burdick RN RN jl7 Corrections: (The following items were deleted from the chart) 12:32 12:31 Reassessment: Dr. Gonzalez at bedside discussing plan of care. jl7 jl7
[2017-12-09] MEDS ORDERED: ACETAMINOPHEN 500 MG TAB PO PRN (12:26)
[2017-12-09] MEDS ORDERED: ONDANSETRON 4 MG/2 ML VIAL IV PRN (12:26)
--- NOTE | 2017-12-09 12:39 | ECHO ---
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-BC 2-DIMENSIONAL: YES M.MODE: YES DOPPLER: YES COLOR FLOW: YES TDS: NO PORTABLE: YES DEFINITY: NO BUBBLE STUDY: NO DIAGNOSIS: INFLAMMATORY SEPSIS CARDIAC HISTORY: CATHERIZATION: NO SURGERY: NO PROSTHETIC VALVE: NO PACEMAKER: NO MEASUREMENTS (cm) DIASTOLIC (NORMALS) SYSTOLIC (NORMALS) IVSd 1.0 (0.6-1.2) LA Diam 3.4 (1.9-4.0) LVEF 66% LVIDd 4.5 (3.5-5.7) LVIDs 2.9 (2.0-3.5) %FS 36% LVPWd 0.9 (0.6-1.2) Ao Diam 2.7 (2.0-3.7) 2 DIMENSIONAL ASSESSMENT: RIGHT ATRIUM: NORMAL LEFT ATRIUM: NORMAL RIGHT VENTRICLE: NORMAL LEFT VENTRICLE: NORMAL TRICUSPID VALVE: NORMAL MITRAL VALVE: NORMAL PULMONIC VALVE: NORMAL AORTIC VALVE: NORMAL PERICARDIAL EFFUSION: NONE AORTIC ROOT: NORMAL LEFT VENTRICULAR WALL MOTION: NORMAL. DOPPLER/COLOR FLOW: TRACE OF TRICUSPID REGURGITATION. COMMENTS: TRACE OF TRICUSPID REGURGITATION NORMAL RIGHT VENTRICULAR SYSTOLIC PRESSURE. NORMAL LEFT VENTRICULAR SIZE AND FUNCTION. NO WALL MOTION ABNORMALITY. NO EFFUSION. TECHNOLOGIST: FANY LEE
[2017-12-09 16:11] VITALS: BMI 31.1
[2017-12-09] MEDS: HYDROCODONE/APAP 7.5/325 MG TAB PO PRN (16:39)
[2017-12-09] MEDS: NA CHLORIDE 0.9% 1,000 ML IV SCH (16:40)
[2017-12-09] MEDS ORDERED: POTASSIUM 25 MEQ EFFERV TAB PO ONE (20:00)
[2017-12-09] MEDS: CETIRIZINE HCL PO SCH (21:00)
[2017-12-09] MEDS: PSEUDOEPHEDRINE PO SCH (21:00)
[2017-12-10] MEDS: NA CHLORIDE 0.9% 1,000 ML IV SCH ×2 (01:00→10:47)
[2017-12-10] MEDS: HYDROCODONE/APAP 7.5/325 MG TAB PO PRN (05:19)
[2017-12-10] MEDS ORDERED: HYDROCORTISONE SUC 100 MG INJ IV ONE (05:21)
[2017-12-10 07:02] LABS: Absolute Lymphocytes (CBC) 1.9 K/uL (0.7-4.9); Absolute Monocytes 0.9 K/uL (0.1-1.3); Absolute Neutrophil 5.1 K/uL (1.8-8.0); Basophils % 0.5 % (0-1.3); Eosinophils % 2.7 % (0-4.4); Hematocrit 29.7 % (36.0-45.0); Lymphocytes % 23.8 % (15.3-44.8); MCH 25.5 pg (27.0-35.0); MCV 78.5 fL (80-100); MPV 8.8 fL (7.6-11.3); Monocytes % 10.5 % (3.3-12.3); RBC Red Blood Cell Count 3.78 M/uL (3.86-4.86)
--- NOTE | 2017-12-10 07:02 | P.HP ---
Certification for Inpatient Patient admitted to: Inpatient With expected LOS: >2 Midnights Patient will require the following post-hospital care: None Practitioner: I am a practitioner with admitting privileges, knowledge of patient current condition, hospital course, and medical plan of care. Services: Services provided to patient in accordance with Admission requirements found in Title 42 Section 412.3 of the Code of Federal Regulations Patient History Date of Service: 12/09/17 Reason for admission: Joint pain and tender rash on the bob History of Present Illness: Patient is a 37-year-old female came to the hospital with a rash on her bob. She is hurting all over. She is admitted to the hospital for further evaluation. She had multiple diagnostic studies performed. On further evaluation the rash is over her bob and very tender. It appears to be erythema nodosum. Along with the joint pain this is a most likely etiology. She will be admitted to the hospital and will continue workup and include a few other studies. This is most likely self-limiting but she will need continued follow-up for secondary causes. Otherwise, once her pain and symptoms are better controlled we can work this up as an outpatient. Allergies No Known Drug Allergies Allergy (Verified 12/09/17 15:50) Unknown Home Medications: Amoxicillin 500 mg PO TID 12/09/17 Cetirizine HCl/Pseudoephedrine [Zyrtec-D Tablet] 1 each PO BID 12/09/17 Cholecalciferol (Vitamin D3) [Vitamin D3] 2,000 unit PO DAILY 12/09/17 - Past Medical/Surgical History Has patient received pneumonia vaccine in the past: No Diabetic: No -: None -: D&C 2011 - Family History Father Medical History: Heart disease, Lung disease Mother History Unknown: Yes - Social History Smoking Status: Never smoker Alcohol use: Yes CD- Drugs: No Caffeine use: Yes Place of Residence: Home Review of Systems 10-point ROS is otherwise unremarkable Physical Examination - Vital Signs Temperature: 97.3 F Blood Pressure: 93/54 Pulse: 78 Respirations: 18 Pulse Ox (%): 98 - Physical Exam General: Alert, In no apparent distress, Oriented x3 HEENT: Atraumatic, PERRLA, Mucous membr. moist/pink, EOMI, Sclerae nonicteric Neck: Supple, 2+ carotid pulse no bruit, No LAD, Without JVD or thyroid abnormality Respiratory: Clear to auscultation bilaterally, Normal air movement Cardiovascular: Regular rate/rhythm, Normal S1 S2, No murmurs Gastrointestinal: Normal bowel sounds, Soft and benign, Non-distended, No tenderness Musculoskeletal: No swelling, Tenderness Integumentary: Rash(es), Tenderness/swelling, Erythema, Warmth Neurological: Normal gait, Normal speech, Normal strength at 5/5 x4 extr, Normal tone, Sensation intact, Cranial nerves 3-12 intact, Normal affect Lymphatics: No axilla or inguinal lymphadenopathy - Studies Laboratory Data (last 24 hrs) 12/09/17 08:15: WBC 10.4, Hgb 10.6 L, Hct 31.9 L, Plt Count 406 12/09/17 08:15: Sodium 140, Potassium 3.5, BUN 7, Creatinine 0.60, Glucose 92, Total Bilirubin 0.3, AST 13 L, ALT 16, Alkaline Phosphatase 69 Microbiology Data (last 24 hrs): 12/09/17 08:15 Throat Group A Streptococcus Rapid Screen - Final Assessment & Plan - Problems (Diagnosis) (1) Erythema nodosum Current Visit: Yes Status: Acute - Plan Plan: 1. Continue with IV hydration 2. Continue with pain control 3. Anti-inflammatory with steroid/colchicine 4. Monitor labs 5. Check echocardiogram 6. Further workup as an outpatient 7. GI and DVT prophylaxis Discharge Plan: Home Plan to discharge in: 48 Hours - Advance Directives Does patient have a Living Will: No Does patient have a Durable POA for Healthcare: No - Code Status/Comfort Care Code Status Assessed: Yes Code Status: Full Code Critical Care: No Time Spent Managing PTS Care (In Minutes): 50
[2017-12-10 07:20] LABS: ALT/SGPT 12 U/L (12-78); AST/SGOT 9 U/L (15-37); Albumin 2.6 g/dL (3.4-5.0); Alkaline Phosphatase 61 U/L (45-117); BUN Blood Urea Nitrogen 5 mg/dL (7-18); Bicarbonate 27 mmol/L (21-32); Bilirubin Total 0.3 mg/dL (0.2-1.0); Glucose Level 85 mg/dL (74-106); Potassium 3.7 mmol/L (3.5-5.1); Protein, Total 6.8 g/dL (6.4-8.2); Sodium Level 142 mmol/L (136-145)
[2017-12-10] MEDS ORDERED: KCL 20 MEQ/100 mL IVPB 20 MEQ/100 ML BAG IV SCH (09:00)
[2017-12-10] MEDS: PSEUDOEPHEDRINE PO SCH (09:00)
[2017-12-10] MEDS: CETIRIZINE HCL PO SCH (09:00)
[2017-12-10 09:15] VITALS: O2SAT 97
[2017-12-10] MEDS ORDERED: POTASSIUM 25 MEQ EFFERV TAB PO ONE (10:05)
[2017-12-10 10:34] LABS: Barbiturates NEGATIVE (NEGATIVE); Benzodiazepines NEGATIVE (NEGATIVE); Cocaine NEGATIVE (NEGATIVE); METHAMPHETAM NEGATIVE (NEGATIVE); Methadone NEGATIVE (NEGATIVE); Opiates NEGATIVE (NEGATIVE); Phencyclidine NEGATIVE (NEGATIVE); THC Cannibis NEGATIVE (NEGATIVE)
[2017-12-10 13:12] VITALS: BP 114/71; TEMP 98
--- NOTE | 2017-12-10 17:10 | CON ---
History Of Present Illness: The patient coming in with the rash and nodular lesions on her lower ext remity with severe discomfort. The patient has been having this problem for last 2 weeks. She has b een hurting all over her body and she was seen in the emergency room, where she was given antibiotic Amoxil with not much of improvement. The patient was also given some decongestant for the fluid in h er ears. The patient denies any headache, nausea, vomiting, chest pain, abdominal pain, constipation , or diarrhea. Feels slightly better since yesterday. The patient was given Solu-Cortef and was sta rted on doxycycline by the hospitalists. Past Medical History: Dilation and curettage in 2011. Otherwise unremarkable neck. Social History: Social drinker. Family History: Noncontributory. Medication: Doxycycline. Allergies: NO KNOWN DRUG ALLERGIES. Review of Systems: A 10-point review was performed. Physical Examination: General: This is a 37-year-old female, lying in bed, not in any acute cardiopulmonary distress. Vital Signs: Temperature 97, pulse 75, respirations 16, blood pressure 107/55. HEENT: Unremarkable. Neck: Supple. Lungs: Clear to auscultation. Heart: S1, S2. Regular. Abdomen: Soft, nontender. Bowel sounds positive. Extremity: Hyperpigmented lesions noted with tenderness slightly from foot all the way above knee re gion. Laboratory Data: Shows WBC 8.1, hemoglobin 9.6, platelets are 325. Chemistry shows sodium 142, pota ssium 3.7, chloride 109, bicarb 27, BUN 5, creatinine 0.5, glucose is 90. C-reactive protein is 40. Toxicology is negative. Microbiology: Blood cultures are negative for 24 hours. Assessment And Plan: Erythema nodosum. Recommend to continue steroids, Medrol Dosepak, and anti-inf lammatory and agree with doxycycline for possible infectious cause for 10 days. Continue current clarisse atment. Thank you Dr. Billingsley for consult. NF/MODL Voice ID: [id number] Report ID: [id number]
--- NOTE | 2017-12-11 06:35 | DS ---
Date of Discharge: 12/10/2017 Consultants: Dr. Mtz with Infectious Disease. Discharge Diagnoses: 1. Erythema nodosum. 2. Recently treated ear infection. 3. Obesity. Hospital Course: The patient is a 37-year-old female, initially came in with ear pain, was diagnosed with an ear infection, started on amoxicillin. Had some rash, came back to the ER a couple of days later. Was started on Bactrim. The patient had worsening condition. Had rash all over her bob, which was tender. Also had some arthralgias, myalgias, unable to walk, had severe pain, and therefore came in for further evaluation. The patient was started on IV hydration, pain control; anti-inflammatories and steroids were initiated. Workup to determine etiology was initiated. The patient's UDS was negative. Lyme disease, Trichomonas, and gonorrhea was sent of. Hepatitis antigen was sent of. Barry screen was negative. test was also negative. The patient does not have any family history of autoimmune diseases. The patient responded well to anti-inflammatories and steroids. Her blood cultures remained negative. Repeat urine culture from this admission did not show any growth. The patient will be seen by Dr. Mtz with Infectious Disease. He agreed with the treatment. Also recommended to continue doxycycline. The patient was feeling better. She was able to ambulate, tolerate her diet, did not have any further pain, which was improving. The patient was therefore discharged home in a stable condition. Activity: As tolerated. Followup: Follow up with primary care physician in 2-3 days and to follow up with outside labs with the PCP in 1-2 weeks. Follow up with BEVERLEY Lindquist in 2 weeks. Return to ER for worsening condition. Medications: As per medication reconciliation list. Physical Examination: General: Awake, alert, oriented, no acute distress. Morbidly obese female. BMI 31. CV: S1, S2. No murmurs. Respiratory: Moving air well bilaterally. Abdomen: Soft, nontender, nondistended. Positive bowel sounds. Extremities: No clubbing, cyanosis, edema. Neurologic: Nonfocal. Skin: The patient does have some erythematous painful nodules on her bilateral shins which are improving. The patient instructed to follow up with her PCP regarding workup for possible autoimmune disease as this may be a presenting factor. She voiced understanding. /ERIK Voice ID: [id number] Report ID: [id number]
[2017-12-11 12:12] LABS: C.trachomatis RNA,TMA Not Detected (Not Detected)
[2017-12-12 18:56] LABS: HBsAG Nonreactive (Nonreactive); Hepatitis A IgM Antibody Nonreactive
== END 2017-12-10 14:41 | disposition home or self-care (01) ==
LOC: ER 07:21 → ERHOLD 12:24 → INTOOBSV 12:24 → 2ND 15:34
PROVIDERS: ADMIT Family Medicine; ATTEND Hospitalist
DX: L52 Erythema nodosum (principal); E66.9 Obesity, unspecified; Z68.31 Body mass index [BMI] 31.0-31.9, adult
CPT/HCPCS: 36415; 80048; 80053; 80074; 80076; 80307; 81003; 81015; 81025; 83605; 84145; 85025; 86060; 86140; 86308; 86618; 86664; 86665; 87040; 87070; 87081; 87086; 87088; 87490; 87590; 93306; 94760; 96360; 99285; G0378; J1720; J2405; J7030

== ENCOUNTER 2019-01-05 09:54 | Emergency (ER) | payer BC, SELFPAY ==
[2019-01-05] MEDS ORDERED: IBUPROFEN 400 MG TAB ONE (10:38)
--- NOTE | 2019-01-05 11:35 | RAD REPORT ---
EXAM DESCRIPTION: RAD - Knee Right 3 View - 01/05/2019 11:26 am CLINICAL HISTORY: PAIN COMPARISON: No comparisons FINDINGS: Mild arthritic changes are present. No fracture, dislocation or joint effusion evident.
[2019-01-05 11:44] LABS: Urine Blood TRACE (NEG); Urine Glucose TRACE (NEG); Urine Protein NEGATIVE (NEG); Urine pH 5.5 (5.0-7.0)
--- NOTE | 2019-01-05 11:57 | EDPHYS ---
Physician Documentation [facility] Name: Hilary Mcmillan Age: 38 yrs Sex: Female : 1980 Arrival Date: 01/05/2019 Time: 09:57 Bed 19 Private MD: ED Physician Chance Suazo HPI: 01/05 11:49 This 38 yrs old Female presents to ER via Wheelchair with complaints of Knee gs Pain. 11:49 The patient presents with pain. The complaints affect the right knee. Onset: The gs symptoms/episode began/occurred 2 day(s) ago. Modifying factors: the symptoms are aggravated by bending knee. Associated signs and symptoms: Pertinent negatives fever, swelling. Severity of symptoms: At their worst the symptoms were moderate, in the emergency department the symptoms are unchanged. The patient has experienced similar episodes in the past, a few times. 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 tw2 Historical: - Allergies: 10:32 NKDA; sv - PMHx: 10:32 UTI; vitmin D def; sv - PSHx: 10:32 D \T\ C; sv - Immunization history:: Adult Immunizations. - Social history:: The patient lives at home, Smoking status: . - Ebola Screening: : Patient denies travel to an Ebola-affected area in the 21 days before illness onset. ROS: 11:49 All other systems are negative. gs Exam: 11:49 Head/Face: Normocephalic, atraumatic. Eyes: Pupils equal round and reactive to light, gs extra-ocular motions intact. Lids and lashes normal. Conjunctiva and sclera are non-icteric and not injected. Cornea within normal limits. Periorbital areas with no swelling, redness, or edema. ENT: Nares patent. No nasal discharge, no septal abnormalities noted. Tympanic membranes are normal and external auditory canals are clear. Oropharynx with no redness, swelling, or masses, exudates, or evidence of obstruction, uvula midline. Mucous membranes moist. Neck: Trachea midline, no thyromegaly or masses palpated, and no cervical lymphadenopathy. Supple, full range of motion without nuchal rigidity, or vertebral point tenderness. No Meningismus. Chest/axilla: Normal chest wall appearance and motion. Nontender with no deformity. No lesions are appreciated. Cardiovascular: Regular rate and rhythm with a normal S1 and S2. No gallops, murmurs, or rubs. Normal PMI, no JVD. No pulse deficits. Respiratory: Lungs have equal breath sounds bilaterally, clear to auscultation and percussion. No rales, rhonchi or wheezes noted. No increased work of breathing, no retractions or nasal flaring. Abdomen/GI: Soft, non-tender, with normal bowel sounds. No distension or tympany. No guarding or rebound. No evidence of tenderness throughout. Back: No spinal tenderness. No costovertebral tenderness. Full range of motion. Skin: Warm, dry with normal turgor. Normal color with no rashes, no lesions, and no evidence of cellulitis. Neuro: Awake and alert, GCS 15, oriented to person, place, time, and situation. Cranial nerves II-XII grossly intact. Motor strength 5/5 in all extremities. Sensory grossly intact. Cerebellar exam normal. Normal gait. 11:49 Constitutional: The patient appears alert, awake. 11:49 Musculoskeletal/extremity: ROM: limited active range of motion due to pain, limited passive range of motion due to pain, Pulses: are normal with no appreciated deficits, Joints: tenderness, no swelling. Vital Signs: 10:32 BP 116 / 67; Pulse 71; Resp 16; Temp 99.2; Pulse Ox 100% ; Weight 77.11 kg; Height 5 sv ft. 4 in. (162.56 cm); Pain 6/10; 11:23 BP 94 / 66; Pulse 72; Resp 16; Temp 98.7(O); Pulse Ox 100% on R/A; mh5 10:32 Body Mass Index 29.18 (77.11 kg, 162.56 cm) sv MDM: 10:30 Patient medically screened. gs 11:49 Differential diagnosis: contusion, tendonitis. Data reviewed: vital signs, nurses gs notes. Counseling: I had a detailed discussion with the patient and/or guardian regarding: the historical points, exam findings, and any diagnostic results supporting the discharge/admit diagnosis. Response to treatment: the patient's symptoms have mildly improved after treatment, and as a result, I will discharge patient. 01/05 10:32 Order name: D-Dimer; Complete Time: 11:42 01/05 10:51 Order name: Urine Dipstick--Ancillary (enter results); Complete Time: 12:08 01/05 10:32 Order name: Knee Right 3 View XRAY; Complete Time: 11:42 01/05 10:51 Order name: Urine --Ancillary (enter results); Complete Time: 12:08 01/05 11:49 Order name: Knee Immobilizer; Complete Time: 12:08 tw2 Administered Medications: 11:01 Drug: Ibuprofen 800 mg Route: PO; tw2 11:52 Follow up: Response: No adverse reaction tw2 Disposition: 01/05/19 11:56 Discharged to Home. Impression: Internal derangement of knee. - Condition is Stable. - Discharge Instructions: Meniscus Tear, Knee Pain, Knee Immobilizer, [id number]. - Prescriptions for Tylenol- Codeine #4 300-60 mg Oral Tablet - take 1 tablet by ORAL route every 6 hours As needed; 6 tablet. - Work release form, Medication Reconciliation Form, Thank You Letter, Antibiotic Education, Prescription Opioid Use form. - Follow up: Luis Schmidt MD; When: 2 - 3 days; Reason: Re-evaluation by your physician. Signatures: Dispatcher [employer] EDMS Meagan Car RN RN Kitty De Oliveira RN RN 2 Chance Suazo MD MD Corrections: (The following items were deleted from the chart) 12:10 11:56 01/05/2019 11:56 Discharged to Home. Impression: Internal derangement of knee. tw2 Condition is Stable. Forms are Work release form, Medication Reconciliation Form, Thank You Letter, Antibiotic Education, Prescription Opioid Use. Follow up: Dr. Luis Schmidt; When: 2 - 3 days; Reason: Re-evaluation by your physician. gs
--- NOTE | 2019-01-05 11:57 | ER ---
Nurse's Notes [facility] Name: Hilary Mcmillan Age: 38 yrs Sex: Female : 1980 Arrival Date: 01/05/2019 Time: 09:57 Bed 19 Private MD: Diagnosis: Internal derangement of knee Presentation: 01/05 10:31 Presenting complaint: Patient states: right knee pain x 1 day after getting tangled up sv in the bed, denies any injury. Transition of care: patient was not received from another setting of care. Onset of symptoms was January 04, 2019. Risk Assessment: Do you want to hurt yourself or someone else? Patient reports no desire to harm self or others. Care prior to arrival: None. 10:31 Method Of Arrival: Wheelchair sv 10:31 Acuity: USHA 4 sv 12:09 Initial Sepsis Screen: Does the patient meet any 2 criteria? No. Patient's initial tw2 sepsis screen is negative. Does the patient have a suspected source of infection? No. Patient's initial sepsis screen is negative. Triage Assessment: 10:31 General: Appears in no apparent distress. uncomfortable, well developed, Behavior is sv calm, cooperative, appropriate for age. Pain: Complains of pain in right knee Pain currently is 6 out of 10 on a pain scale. Neuro: Level of Consciousness is awake, alert, obeys commands, Oriented to person, place, time, situation, Moves all extremities. Full function. Respiratory: Respiratory effort is even, unlabored, Respiratory pattern is regular, symmetrical. Derm: Skin is pink, warm \T\ dry. 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 tw2 Historical: - Allergies: 10:32 NKDA; sv - PMHx: 10:32 UTI; vitmin D def; sv - PSHx: 10:32 D \T\ C; sv - Immunization history:: Adult Immunizations. - Social history:: The patient lives at home, Smoking status: . - Ebola Screening: : Patient denies travel to an Ebola-affected area in the 21 days before illness onset. Screenin:09 Abuse screen: Denies threats or abuse. Nutritional screening: No deficits noted. tw2 Tuberculosis screening: No symptoms or risk factors identified. Fall Risk None identified. Assessment: 12:08 Reassessment: Patient appears in no apparent distress at this time. No changes from tw2 previously documented assessment. Patient and/or family updated on plan of care and expected duration. Pain level reassessed. Patient is alert, oriented x 3, equal unlabored respirations, skin warm/dry/pink. Vital Signs: 10:32 BP 116 / 67; Pulse 71; Resp 16; Temp 99.2; Pulse Ox 100% ; Weight 77.11 kg; Height 5 sv ft. 4 in. (162.56 cm); Pain 6/10; 11:23 BP 94 / 66; Pulse 72; Resp 16; Temp 98.7(O); Pulse Ox 100% on R/A; mh5 10:32 Body Mass Index 29.18 (77.11 kg, 162.56 cm) sv ED Course: 09:57 Patient arrived in ED. rg4 10:20 Chance Suazo MD is Attending Physician. gs 10:25 Meagan Car, RN is Primary Nurse. sv 10:31 Arm band placed on. sv 10:31 Patient has correct armband on for positive identification. Bed in low position. Call sv light in reach. Pulse ox on. NIBP on. Door closed. Head of bed elevated. 10:32 Triage completed. sv 10:45 Initial lab(s) drawn, by ma, sent to lab. sv 10:58 Primary Nurse role handed off by Meagan Car, MASTER tw2 10:58 Kitty De Oliveira, RN is Primary Nurse. tw2 11:09 Arm band placed on. tw2 11:09 Report given to Kitty THAO. sv 11:29 Knee Right 3 View XRAY In Process Unspecified. EDMS 11:35 Urine --Ancillary (enter results) Sent. mh5 11:35 Urine Dipstick--Ancillary (enter results) Sent. mh5 11:35 Urine collected: clean catch specimen, clear. mh5 11:56 Luis Schmidt MD is Referral Physician. gs 12:08 No provider procedures requiring assistance completed. Patient did not have IV access tw2 during this emergency room visit. Administered Medications: 11:01 Drug: Ibuprofen 800 mg Route: PO; tw2 11:52 Follow up: Response: No adverse reaction tw2 Outcome: 11:56 Discharge ordered by . gs 12:09 Discharged to home via wheelchair. tw2 12:09 Condition: stable 12:09 Discharge instructions given to patient, Instructed on discharge instructions, follow up and referral plans. no drinking with medication, no driving heavy equipment, medication usage, safety practices, Demonstrated understanding of instructions, follow-up care, medications, knee immobilizer Prescriptions given X 1. 12:10 Patient left the ED. tw2 Signatures: Dispatcher [employer] Meagan Griffin RN RN Kitty De Oliveira RN RN 2 Kassi Valdovinos [facility] Tamie Pedersen [facility] Chance Suazo MD MD Corrections: (The following items were deleted from the chart) 10:54 10:32 77.11 kg; Height 5 ft. 4 in.; BMI: 29.1; Pain 6/10; sv sv 11:26 11:23 BP 94 / 66; Pulse 72bpm; Resp 16bpm; Pulse Ox 100% RA; mh5 mh5
[2019-01-05 12:55] VITALS: BP 94/66; TEMP 98.7; O2SAT 100
== END 2019-01-05 12:10 | disposition home or self-care (01) ==
LOC: ER 09:54
DX: M23.91 Unspecified internal derangement of right knee (principal)
CPT/HCPCS: 36415; 81003; 81025; 85379; 99284

== ENCOUNTER 2019-02-08 12:53 | Emergency (ER) | payer SELFPAY ==
--- NOTE | 2019-02-08 14:09 | ER ---
Nurse's Notes [facility] Name: Hilary Mcmillan Age: 38 yrs Sex: Female : 1980 Arrival Date: 02/08/2019 Time: 13:07 Bed DIS2 Private MD: None, None Diagnosis: Acute tonsillitis;Dysphagia Presentation: 02/08 13:12 Presenting complaint: Patient states: i have pain in my throat, i think i have a pill tw2 stuck in my throat, i feel like a stabbing in the right side of my throat. Transition of care: patient was not received from another setting of care. Onset of symptoms was February 08, 2019. Risk Assessment: Do you want to hurt yourself or someone else? Patient reports no desire to harm self or others. Initial Sepsis Screen: Does the patient meet any 2 criteria? No. Patient's initial sepsis screen is negative. Does the patient have a suspected source of infection? No. Patient's initial sepsis screen is negative. Care prior to arrival: None. 13:12 Method Of Arrival: Ambulatory tw2 13:12 Acuity: USHA 3 tw2 Triage Assessment: 13:14 General: Appears in no apparent distress. obese, well groomed, Behavior is calm, tw2 cooperative, appropriate for age. Pain: Complains of pain in throat. EENT: Reports pain when swallowing. 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 - Social history:: Smoking status: . - Ebola Screening: : Patient denies travel to an Ebola-affected area in the 21 days before illness onset. - Family history:: not pertinent. Screenin:52 Abuse screen: Denies threats or abuse. Nutritional screening: No deficits noted. tw2 Tuberculosis screening: No symptoms or risk factors identified. Fall Risk None identified. Assessment: 13:55 General: Appears in no apparent distress. Behavior is calm, cooperative, appropriate tw2 for age. Neuro: Level of Consciousness is awake, alert, obeys commands, Oriented to person, place, time, situation. Cardiovascular: Patient's skin is warm and dry. Respiratory: Airway is patent Respiratory effort is even, unlabored, Respiratory pattern is regular, symmetrical, Breath sounds are clear bilaterally. GI: No signs and/or symptoms were reported involving the gastrointestinal system. EENT: Throat is pink. Derm: No signs and/or symptoms reported regarding the dermatologic system. Musculoskeletal: Range of motion: intact in all extremities. 14:15 Reassessment: Patient appears in no apparent distress at this time. Patient and/or ss family updated on plan of care and expected duration. Pain level reassessed. Patient is alert, oriented x 3, equal unlabored respirations, skin warm/dry/pink. Vital Signs: 13:13 BP 128 / 76; Pulse 78; Resp 16; Temp 98.0(O); Pulse Ox 98% on R/A; Weight 82.1 kg (R); tw2 Height 5 ft. 4 in. (162.56 cm); Pain 6/10; 13:13 Body Mass Index 31.07 (82.10 kg, 162.56 cm) tw2 ED Course: 13:07 Patient arrived in ED. mr 13:07 None, None is Private Physician. mr 13:13 Triage completed. tw2 13:13 Arm band placed on. tw2 13:20 Bed in low position. Call light in reach. tw2 13:21 Chapo Maldonado MD is Attending Physician. [facility] 14:07 Meagan Caldwell MD is Referral Physician. [facility] 14:15 Ludmila Cope, MASTER is Primary Nurse. 14:15 No provider procedures requiring assistance completed. Patient did not have IV access ss during this emergency room visit. Administered Medications: No medications were administered Outcome: 14:08 Discharge ordered by . roscoe 14:15 Discharged to home ambulatory, with family. ss 14:15 Condition: good 14:15 Discharge instructions given to patient, Instructed on discharge instructions, follow up and referral plans. medication usage, Demonstrated understanding of instructions, follow-up care, medications, Prescriptions given X 1. 14:16 Patient left the ED. ss Signatures: Chapo Maldonado MD MD cha Rivera, Mary mr Ludmila Cope, MASTER RN Kitty Frias RN RN tw2
--- NOTE | 2019-02-08 14:09 | EDPHYS ---
Physician Documentation [facility] Name: Hilary Mcmillan Age: 38 yrs Sex: Female : 1980 Arrival Date: 02/08/2019 Time: 13:07 Bed DIS2 Private MD: None, None ED Physician Chapo Maldonado HPI: 02/08 14:04 This 38 yrs old Female presents to ER via Ambulatory with complaints of Sore roscoe Throat. 14:04 The patient presents with sore throat. The patient describes throat pain as burning, roscoe constant. Onset: The symptoms/episode began/occurred 2 day(s) ago. Severity of symptoms: At their worst the symptoms were. Modifying factors: The symptoms are alleviated by nothing, the symptoms are aggravated by fluids, swallowing. Associated signs and symptoms: The patient has no apparent associated signs or symptoms. The patient has not experienced similar symptoms in the past. 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 - Social history:: Smoking status: . - Ebola Screening: : Patient denies travel to an Ebola-affected area in the 21 days before illness onset. - Family history:: not pertinent. ROS: 14:04 Constitutional: Negative for fever, chills, and weight loss, Eyes: Negative for injury, roscoe pain, redness, and discharge, Neck: Negative for injury, pain, and swelling, Cardiovascular: Negative for chest pain, palpitations, and edema, Respiratory: Negative for shortness of breath, cough, wheezing, and pleuritic chest pain, Abdomen/GI: Negative for abdominal pain, nausea, vomiting, diarrhea, and constipation, Back: Negative for injury and pain, : Negative for injury, bleeding, discharge, and swelling, MS/Extremity: Negative for injury and deformity, Skin: Negative for injury, rash, and discoloration, Neuro: Negative for headache, weakness, numbness, tingling, and seizure, Psych: Negative for depression, anxiety, suicide ideation, homicidal ideation, and hallucinations, Allergy/Immunology: Negative for hives, rash, and allergies, Endocrine: Negative for neck swelling, polydipsia, polyuria, polyphagia, and marked weight changes, Hematologic/Lymphatic: Negative for swollen nodes, abnormal bleeding, and unusual bruising. 14:04 ENT: Positive for sore throat. Exam: 14:04 Constitutional: This is a well developed, well nourished patient who is awake, alert, roscoe and in no acute distress. Head/Face: Normocephalic, atraumatic. Eyes: Pupils equal round and reactive to light, extra-ocular motions intact. Lids and lashes normal. Conjunctiva and sclera are non-icteric and not injected. Cornea within normal limits. Periorbital areas with no swelling, redness, or edema. Neck: Trachea midline, no thyromegaly or masses palpated, and no cervical lymphadenopathy. Supple, full range of motion without nuchal rigidity, or vertebral point tenderness. No Meningismus. Chest/axilla: Normal chest wall appearance and motion. Nontender with no deformity. No lesions are appreciated. Cardiovascular: Regular rate and rhythm with a normal S1 and S2. No gallops, murmurs, or rubs. Normal PMI, no JVD. No pulse deficits. Respiratory: Lungs have equal breath sounds bilaterally, clear to auscultation and percussion. No rales, rhonchi or wheezes noted. No increased work of breathing, no retractions or nasal flaring. Abdomen/GI: Soft, non-tender, with normal bowel sounds. No distension or tympany. No guarding or rebound. No evidence of tenderness throughout. Back: No spinal tenderness. No costovertebral tenderness. Full range of motion. Skin: Warm, dry with normal turgor. Normal color with no rashes, no lesions, and no evidence of cellulitis. MS/ Extremity: Pulses equal, no cyanosis. Neurovascular intact. Full, normal range of motion. Neuro: Awake and alert, GCS 15, oriented to person, place, time, and situation. Cranial nerves II-XII grossly intact. Motor strength 5/5 in all extremities. Sensory grossly intact. Cerebellar exam normal. Normal gait. Psych: Awake, alert, with orientation to person, place and time. Behavior, mood, and affect are within normal limits. 14:04 ENT: Posterior pharynx: Airway: normal, no evidence of obstruction, Tonsils: are normal in appearance, enlarged on the right, with erythema, Uvula: normal, midline, non-edematous, no erythema, swelling, that is mild, erythema, that is mild, exudate, is not appreciated, peritonsillar mass, is not appreciated, pooling of secretions, is not appreciated. Vital Signs: 13:13 BP 128 / 76; Pulse 78; Resp 16; Temp 98.0(O); Pulse Ox 98% on R/A; Weight 82.1 kg (R); tw2 Height 5 ft. 4 in. (162.56 cm); Pain 6/10; 13:13 Body Mass Index 31.07 (82.10 kg, 162.56 cm) tw2 MDM: 13:21 Patient medically screened. [facility] 14:06 Data reviewed: vital signs, nurses notes. [facility] Administered Medications: No medications were administered Disposition: 02/08/19 14:08 Discharged to Home. Impression: Acute tonsillitis, Dysphagia. - Condition is Stable. - Discharge Instructions: Tonsillitis, Tonsillitis, [id number]. - Prescriptions for Augmentin 875- 125 mg Oral Tablet - take 1 tablet by ORAL route every 12 hours for 10 days; 20 tablet. - Medication Reconciliation Form, Thank You Letter, Antibiotic Education, Prescription Opioid Use, Work release form form. - Follow up: Private Physician; When: 2 - 3 days; Reason: Recheck today's complaints, Continuance of care, Re-evaluation by your physician. Follow up: Meagan Caldwell MD; When: 2 - 3 days; Reason: Recheck today's complaints, Re-evaluation by your physician. - Problem is new. - Symptoms have improved. Signatures: Chapo Maldonado MD MD cha Smirch, Shelby, MASTER RN ss Kitty De Oliveira RN RN tw2 Corrections: (The following items were deleted from the chart) 14:16 14:08 02/08/2019 14:08 Discharged to Home. Impression: Acute tonsillitis; Dysphagia. ss Condition is Stable. Forms are Work release form, Medication Reconciliation Form, Thank You Letter, Antibiotic Education, Prescription Opioid Use. Follow up: Private Physician; When: 2 - 3 days; Reason: Recheck today's complaints, Continuance of care, Re-evaluation by your physician. Follow up: Meagan Caldwell; When: 2 - 3 days; Reason: Recheck today's complaints, Re-evaluation by your physician. Problem is new. Symptoms have improved. roscoe
[2019-02-08 15:05] VITALS: BP 128/76; TEMP 98; O2SAT 98
== END 2019-02-08 14:16 | disposition home or self-care (01) ==
LOC: ER 12:53
DX: J03.91 Acute recurrent tonsillitis, unspecified (principal); R13.10 Dysphagia, unspecified
CPT/HCPCS: 99282

== ENCOUNTER 2019-09-03 13:15 | Emergency (ER) | payer SELFPAY, OTHER ==
[2019-09-03] MEDS ORDERED: ACETAMINOPHEN 325 MG TABLET ONE (13:34)
--- NOTE | 2019-09-03 14:51 | RAD REPORT ---
EXAM DESCRIPTION: RAD - Chest Single View - 09/03/2019 2:36 pm CLINICAL HISTORY: cough, fever COMPARISON: None TECHNIQUE: AP portable chest image was obtained 09/03/2019 2:36 pm . FINDINGS: Lungs are clear. Heart and vasculature are normal. No measurable pleural effusion and no p neumothorax. No acute bony abnormality seen. No acute aortic findings suspected. IMPRESSION: No acute cardiopulmonary process.
[2019-09-03] MEDS ORDERED: NA CHLORIDE 0.9% 1,000 ML ONE (15:06)
[2019-09-03 15:30] LABS: Absolute Lymphocytes (CBC) 1.1 K/uL (0.7-4.9); Basophils % 0.3 % (0-1.3); Hematocrit 36.8 % (36.0-45.0); Lymphocytes % 7.2 % (15.3-44.8); MPV 9.9 fL (7.6-11.3); RBC Red Blood Cell Count 4.62 M/uL (3.86-4.86)
[2019-09-03 15:49] LABS: ALT/SGPT 14 U/L (12-78); AST/SGOT 14 U/L (15-37); Albumin 3.3 g/dL (3.4-5.0); Alkaline Phosphatase 55 U/L (45-117); BUN Blood Urea Nitrogen 8 mg/dL (7-18); Bicarbonate 23 mmol/L (21-32); Bilirubin Total 0.3 mg/dL (0.2-1.0); Glucose Level 105 mg/dL (74-106); Potassium 3.1 mmol/L (3.5-5.1); Protein, Total 7.9 g/dL (6.4-8.2); Sodium Level 137 mmol/L (136-145)
--- NOTE | 2019-09-03 17:05 | ER ---
Nurse's Notes [facility] Name: Hilary Mcmillan Age: 39 yrs Sex: Female : 1980 Arrival Date: 09/03/2019 Time: 13:20 Bed 19 Private MD: Diagnosis: Streptococcal pharyngitis;Influenza due to certain identified influenza viruses Presentation: 09/02 13:20 Chief complaint: Patient states: chills, body aches, sore throat, productive cough, sv SOB, headache started yesterday. Coronavirus screen: Surgical mask placed on patient. Patient moved to private room, placed in contact and droplet isolation with eye protection until further assessment. Patient reports a cough. Patient reports shortness of breath or difficulty breathing. Patient reports a measured and/or subjective temperature greater than 100.4F. Patient denies travel on a cruise ship or to a country the [facility] currently lists as an affected area. Patient denies contact with known and/or suspected case of COVID-19. Ebola Screen: No symptoms or risks identified at this time. Risk Assessment: Do you want to hurt yourself or someone else? Patient reports no desire to harm self or others. Onset of symptoms was September 02, 2019. 13:20 Method Of Arrival: Ambulatory sv 13:20 Acuity: USHA 2 sv 13:22 Initial Sepsis Screen: Does the patient meet any 2 criteria? Temp <36.0*C (96.8*F)) or sv > 38.3*C (100.9*F). HR > 90 bpm. Yes Does the patient have a suspected source of infection? Yes: Productive cough/pneumonia. Triage Assessment: 13:25 General: Appears in no apparent distress. uncomfortable, Behavior is calm, cooperative, sv appropriate for age. General: Reports chills for 12-24 hours. Pain: Complains of pain in throat. Neuro: Level of Consciousness is awake, alert, obeys commands, Oriented to person, place, time, situation, Gait is steady. Respiratory: Reports cough that is productive, Respiratory effort is even, unlabored, Respiratory pattern is regular, symmetrical. 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 - Social history:: Smoking status: Patient denies any tobacco usage or history of. Screenin:19 Abuse screen: Denies threats or abuse. Nutritional screening: No deficits noted. vc Tuberculosis screening: No symptoms or risk factors identified. Fall Risk None identified. Assessment: 14:21 Respiratory: Airway is patent. vc 14:50 General: Appears in no apparent distress. uncomfortable, ill, Behavior is calm, vc cooperative, appropriate for age. 14:50 Neuro: No deficits noted. Level of Consciousness is awake, alert, obeys commands, vc Oriented to person, place, time. Cardiovascular: Capillary refill < 3 seconds Patient's skin is warm and dry. Respiratory: Airway is patent Respiratory effort is even, unlabored, Respiratory pattern is regular, symmetrical. GI: No signs and/or symptoms were reported involving the gastrointestinal system. : No signs and/or symptoms were reported regarding the genitourinary system. EENT: Throat is reddened with gag reflex present. Derm: No signs and/or symptoms reported regarding the dermatologic system. Derm: Skin temperature is hot. Musculoskeletal: Circulation, motion, and sensation intact. Capillary refill < 3 seconds, Range of motion: intact in all extremities. 14:50 Pain: Complains of pain in throat Pain currently is 7 out of 10 on a pain scale. vc 15:50 Reassessment: Patient appears in no apparent distress at this time. Patient and/or vc family updated on plan of care and expected duration. Pain level reassessed. Patient is alert, oriented x 3, equal unlabored respirations, skin warm/dry/pink. 16:45 Respiratory: vc 16:50 Reassessment: Patient appears in no apparent distress at this time. Patient and/or vc family updated on plan of care and expected duration. Pain level reassessed. Patient is alert, oriented x 3, equal unlabored respirations, skin warm/dry/pink. 17:30 Reassessment: Patient appears in no apparent distress at this time. Patient and/or vc family updated on plan of care and expected duration. Pain level reassessed. Patient is alert, oriented x 3, equal unlabored respirations, skin warm/dry/pink. Patient states feeling better. Patient states symptoms have improved. 09/03 12:03 Reassessment: PUStephane# [id number], Lexi in outside lab notified. hb Vital Signs: 09/02 13:22 BP 112 / 71; Pulse 121; Resp 20; Temp 101.3(O); Pulse Ox 98% ; Weight 75.75 kg; Height sv 5 ft. 4 in. (162.56 cm); 15:30 BP 93 / 56; Pulse 95; Resp 20; Temp 100.2(O); Pulse Ox 97% on R/A; vc 16:00 BP 93 / 61; Pulse 83; Resp 19; Pulse Ox 95% on R/A; vc 17:00 BP 94 / 51; Pulse 94; Resp 18; Pulse Ox 97% on R/A; vc 13:22 Body Mass Index 28.67 (75.75 kg, 162.56 cm) sv ED Course: 13:20 Patient arrived in ED. mr 13:20 Arm band placed on. sv 13:22 Triage completed. sv 13:50 Ruperto Smiley PA is PHCP. jmm 13:50 Bro Riojas MD is Attending Physician. jm 14:18 Josefina Hurt, MASTER is Primary Nurse. vc 14:25 Patient has correct armband on for positive identification. Bed in low position. Pulse vc ox on. NIBP on. 14:39 Chest Single View XRAY In Process Unspecified. EDMS 17:38 No provider procedures requiring assistance completed. IV discontinued, intact, vc bleeding controlled, No redness/swelling at site. Pressure dressing applied. Administered Medications: 13:28 Drug: Tylenol 650 mg Route: PO; sv 15:22 Follow up: Response: No adverse reaction; Temperature is decreased vc 15:21 Drug: NS 0.9% 1000 ml Route: IV; Rate: 1 bolus; Site: right hand; vc 17:41 Follow up: IV Status: Completed infusion; IV Intake: 1000ml vc Intake: 17:41 IV: 1000ml; Total: 1000ml. vc Outcome: 17:04 Discharge ordered by . [facility] 17:40 Discharged to home vc 17:40 Condition: good 17:40 Discharge instructions given to patient, friend, Instructed on discharge instructions, follow up and referral plans. medication usage, Demonstrated understanding of instructions, follow-up care, medications, Prescriptions given X 2. 17:42 Patient left the ED. vc Signatures: Dispatcher [employer] Meagan Griffin RN RN sv Ruperto Smiley PA PA jmm Rivera, Mary mr Mimi Lobo RN RN hb Calcote, Vanessa, RN RN vc Corrections: (The following items were deleted from the chart) 13:26 13:22 Pulse 121bpm; Resp 20bpm; Pulse Ox 98%; Temp 101.3F Oral; 75.75 kg; Height 5 ft. sv 4 in.; BMI: 28.6; sv 13:29 13:20 Acuity: USHA 3 sv sv 18:08 16:45 General: Appears in no apparent distress. uncomfortable, ill, Behavior is calm, vc cooperative, appropriate for age, vc 18:09 16:45 Pain: Complains of pain in throat Pain currently is 7 out of 10 on a pain scale. vc vc 09/03 12:06 12:03 Reassessment: [facility]# [id number] hb hb
--- NOTE | 2019-09-03 17:05 | EDPHYS ---
Physician Documentation [facility] Name: Hilary Mcmillan Age: 39 yrs Sex: Female : 1980 Arrival Date: 09/03/2019 Time: 13:20 Bed 19 Private MD: ED Physician Bro Riojas HPI: 09/02 13:28 This 39 yrs old Female presents to ER via Ambulatory with complaints of Fever, jmm Cough, Sore Throat. 13:28 The patient or guardian reports cough, flu symptoms. Onset: The symptoms/episode jmm began/occurred gradually, 1 day(s) ago. Modifying factors: The symptoms are alleviated by nothing. the symptoms are aggravated by nothing. Associated signs and symptoms: Pertinent positives: fever, sore throat. This is a 39 year old female with no chronic medical conditions that presents to the ED with complaints of cough, sore throat, body aches beginning yesterday. Denies vomiting or diarrhea. . 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 - Social history:: Smoking status: Patient denies any tobacco usage or history of. ROS: 13:28 Cardiovascular: Negative for chest pain, palpitations, and edema. jmm 13:28 Abdomen/GI: Negative for abdominal pain, nausea, vomiting, diarrhea, and constipation, Back: Negative for injury and pain, : Negative for injury, bleeding, discharge, and swelling. 13:28 Constitutional: Positive for body aches, fever. 13:28 ENT: Positive for sore throat. 13:28 Respiratory: Positive for cough. 13:28 Neuro: Positive for headache. 13:28 All other systems are negative. Exam: 13:28 Constitutional: This is a well developed, well nourished patient who is awake, alert, jmm and in no acute distress. Head/Face: atraumatic. Eyes: EOMI, no conjunctival erythema appreciated ENT: Moist Mucus Membranes Neck: Trachea midline, Supple Chest/axilla: Normal chest wall appearance and motion. 13:28 Respiratory: Normal respirations, no respiratory distress appreciated 13:28 Back: Normal ROM Skin: General appearance color normal MS/ Extremity: Moves all extremities, no obvious deformities appreciated, no edema noted to the lower extremities Neuro: Awake and alert, normal gait Psych: Behavior is normal, Mood is normal, Patient is cooperative and pleasant 13:28 ENT: Posterior pharynx: erythema, that is moderate. 13:28 Abdomen/GI: Inspection: abdomen appears normal, Bowel sounds: normal, Palpation: abdomen is soft and non-tender. Vital Signs: 13:22 BP 112 / 71; Pulse 121; Resp 20; Temp 101.3(O); Pulse Ox 98% ; Weight 75.75 kg; Height sv 5 ft. 4 in. (162.56 cm); 15:30 BP 93 / 56; Pulse 95; Resp 20; Temp 100.2(O); Pulse Ox 97% on R/A; vc 16:00 BP 93 / 61; Pulse 83; Resp 19; Pulse Ox 95% on R/A; vc 17:00 BP 94 / 51; Pulse 94; Resp 18; Pulse Ox 97% on R/A; vc 13:22 Body Mass Index 28.67 (75.75 kg, 162.56 cm) sv MDM: 14:17 Patient medically screened. [facility] 17:03 Data reviewed: vital signs, nurses notes. Counseling: I had a detailed discussion with tammi the patient and/or guardian regarding: the historical points, exam findings, and any diagnostic results supporting the discharge/admit diagnosis, lab results, radiology results, the need for outpatient follow up, to return to the emergency department if symptoms worsen or persist or if there are any questions or concerns that arise at home. ED course: Patient is alert and non toxic in appearance in the ED. Patient is advised to follow up with pcp and otherwise given strict return precautions. Patient understood and agrees with the plan of care. . 09/02 13:50 Order name: Strep; Complete Time: 16:19 [facility] 09/02 14:25 Order name: Flu; Complete Time: 16:19 [facility] 09/02 14:25 Order name: CBC with Diff [facility] 09/02 14:25 Order name: CMP; Complete Time: 15:52 [facility] 09/02 14:27 Order name: Procalcitonin; Complete Time: 17:06 [facility] 09/02 13:50 Order name: Chest Single View XRAY; Complete Time: 15:21 [facility] 09/02 14:25 Order name: Saline Lock; Complete Time: 15:21 [facility] 09/02 14:27 Order name: Lactate; Complete Time: 15:52 [facility] 09/02 14:27 Order name: Blood Culture Adult (2) [facility] 09/02 14:31 Order name: CBC with Automated Diff; Complete Time: 15:47 EDMS Administered Medications: 13:28 Drug: Tylenol 650 mg Route: PO; sv 15:22 Follow up: Response: No adverse reaction; Temperature is decreased vc 15:21 Drug: NS 0.9% 1000 ml Route: IV; Rate: 1 bolus; Site: right hand; vc 17:41 Follow up: IV Status: Completed infusion; IV Intake: 1000ml vc Disposition: 19:31 Co-signature as Attending Physician, Bro Riojas MD. [email or web address] Disposition: 09/03/19 17:04 Discharged to Home. Impression: Streptococcal pharyngitis, Influenza due to certain identified influenza viruses. - Condition is Stable. - Discharge Instructions: Influenza, Adult, Strep Throat. - Prescriptions for Amoxicillin 875 mg Oral Tablet - take 1 tablet by ORAL route every 12 hours for 10 days; 20 tablet. Tamiflu 75 mg Oral Capsule - take 1 tablet by ORAL route every 12 hours for 5 days; 10 tablet. - Medication Reconciliation Form, Thank You Letter, Antibiotic Education, Prescription Opioid Use form. - Follow up: Private Physician; When: 2 - 3 days; Reason: Recheck today's complaints, Continuance of care, Re-evaluation by your physician. Signatures: Dispatcher [employer] Meagan Grififn RN RN Ruperto Marin PA PA jmm Calcote, Vanessa RN RN Bro Negrete MD MD [email or web address] Corrections: (The following items were deleted from the chart) 17:42 17:04 09/03/2019 17:04 Discharged to Home. Impression: Streptococcal pharyngitis; vc Influenza due to certain identified influenza viruses. Condition is Stable. Forms are Medication Reconciliation Form, Thank You Letter, Antibiotic Education, Prescription Opioid Use. Follow up: Private Physician; When: 2 - 3 days; Reason: Recheck today's complaints, Continuance of care, Re-evaluation by your physician. jmm
[2019-09-03 17:51] VITALS: TEMP 100.2
[2019-09-03 17:54] VITALS: BP 94/51; O2SAT 97
== END 2019-09-03 17:42 | disposition home or self-care (01) ==
LOC: ER 13:15
DX: J02.0 Streptococcal pharyngitis (principal); J10.1 Influenza due to other identified influenza virus with other respiratory manifestations
CPT/HCPCS: 36415; 71045; 80053; 83605; 84145; 85025; 87040; 87081; 87804; 96360; 96361; 99284; J7030; U0001

== ENCOUNTER 2019-11-24 23:55 | Inpatient (IN) | payer OTHER, SELFPAY ==
[2019-11-25] MEDS ORDERED: ONDANSETRON 4 MG/2 ML VIAL ONE (00:57)
[2019-11-25] MEDS ORDERED: NA CHLORIDE 0.9% 1,000 ML ONE (00:57)
[2019-11-25] MEDS ORDERED: FAMOTIDINE 20 MG/2 ML VIAL IV ONE (00:58)
[2019-11-25 01:10] LABS: Absolute Lymphocytes (CBC) 1.9 K/uL (0.7-4.9); Basophils % 0.4 % (0-1.3); Hematocrit 35.5 % (36.0-45.0); Lymphocytes % 10.9 % (15.3-44.8); MPV 9.2 fL (7.6-11.3); RBC Red Blood Cell Count 4.61 M/uL (3.86-4.86)
[2019-11-25 01:21] LABS: ALT/SGPT 34 U/L (12-78); AST/SGOT 18 U/L (15-37); Albumin 3.5 g/dL (3.4-5.0); Alkaline Phosphatase 52 U/L (45-117); BUN Blood Urea Nitrogen 7 mg/dL (7-18); Bicarbonate 25 mmol/L (21-32); Bilirubin Direct < 0.1 mg/dL (0-0.2); Bilirubin Total 0.2 mg/dL (0.2-1.0); Glucose Level 100 mg/dL (74-106); Lipase 76 U/L (73-393); Potassium 3.5 mmol/L (3.5-5.1); Protein, Total 7.9 g/dL (6.4-8.2); Sodium Level 140 mmol/L (136-145)
[2019-11-25 02:57] LABS: Urine Blood TRACE (NEG); Urine Glucose NEGATIVE (NEG); Urine Protein 1+ (NEG); Urine Specific Gravity >1.030 (1.005-1.030)
--- NOTE | 2019-11-25 03:33 | ER ---
Nurse's Notes [facility] Name: Hilary Mcmillan Age: 39 yrs Sex: Female : 1980 Arrival Date: 11/24/2019 Time: 23:58 Bed 7 Private MD: Diagnosis: Unspecified intestinal obstruction;Nausea and vomiting Presentation: 11/24 00:20 Chief complaint: Patient states: Sarah had Nausea vomiting and diarrhea, also having sg abdominal pain, denies Fever/chills at this time for triag. 00:20 Coronavirus screen: Client denies travel out of the [place] in the last 14 days. At this sg time, the client does not indicate any symptoms associated with coronavirus-19. Ebola Screen: Patient negative for fever greater than or equal to 101.5 degrees Fahrenheit, and additional compatible Ebola Virus Disease symptoms Patient denies exposure to infectious person. Patient denies travel to an Ebola-affected area in the 21 days before illness onset. No symptoms or risks identified at this time. Initial Sepsis Screen: Does the patient meet any 2 criteria? HR > 90 bpm. No. Patient's initial sepsis screen is negative. Does the patient have a suspected source of infection? Yes: Acute abdominal pain. Risk Assessment: Do you want to hurt yourself or someone else? Patient reports no desire to harm self or others. Onset of symptoms was November 25, 2019. Transition of care: patient was not received from another setting of care. 00:20 Method Of Arrival: Ambulatory sg 00:20 Acuity: USHA 3 sg Historical: - Allergies: 00:36 NKDA; sg - PMHx: 00:36 UTI; vitmin D def; sg - PSHx: 00:36 D \T\ C; sg - Immunization history:: Adult Immunizations not up to date. - Social history:: Smoking status: Patient denies any tobacco usage or history of. Screenin:01 Abuse screen: Denies threats or abuse. Nutritional screening: No deficits noted. ea Tuberculosis screening: No symptoms or risk factors identified. Fall Risk IV access (20 points). Assessment: 01:01 General: Appears in no apparent distress. Behavior is appropriate for age. Pain: ea Complains of pain in umbilical area. Neuro: Level of Consciousness is awake, alert, obeys commands, Oriented to person, place, time, situation. Cardiovascular: Patient's skin is warm and dry. Respiratory: Airway is patent Respiratory effort is even, unlabored, Respiratory pattern is regular, symmetrical. GI: Bowel sounds present X 4 quads. Abd is soft and non tender X 4 quads. Derm: Skin is pink, warm \T\ dry. 02:27 Reassessment: Patient and/or family updated on plan of care and expected duration. Pain ea level reassessed. Patient is alert, oriented x 3, equal unlabored respirations, skin warm/dry/pink. Returned from CT. 03:01 Reassessment: Patient and/or family updated on plan of care and expected duration. Pain ea level reassessed. Patient is alert, oriented x 3, equal unlabored respirations, skin warm/dry/pink. Awaiting on CT. 07:00 Reassessment: Pt resting in bed with eyes closed, respirations even and unlabored. . aa5 08:40 Reassessment: Pt refused NG tube placement, Dr. Anderson was notified. . aa5 08:40 Reassessment: Patient is alert, oriented x 3, equal unlabored respirations, skin aa5 warm/dry/pink. Vital Signs: 00:23 BP 131 / 72; Pulse 92; Resp 17; Temp 98.4(O); Pulse Ox 100% on R/A; Weight 80.29 kg; ar5 Height 5 ft. 4 in. (162.56 cm); Pain 9/10; 03:25 BP 97 / 57; Pulse 80; Resp 18; Pulse Ox 98% ; ea 04:26 BP 103 / 55; Pulse 82; Resp 18; Pulse Ox 100% ; ea 08:00 BP 112 / 73; Pulse 84; Resp 16 S; Pulse Ox 97% on R/A; aa5 00:23 Body Mass Index 30.38 (80.29 kg, 162.56 cm) ar5 ED Course: 11/23 23:58 Patient arrived in ED. am2 08/13 00:07 Chapo Fitzpatrick PA is PHCP. cp 00:07 Corey Perez MD is Attending Physician. cp 00:35 Triage completed. sg 00:44 Jeronimo Morris, RN is Primary Nurse. sg 01:01 Inserted saline lock: 20 gauge in right hand, using aseptic technique. ea 01:02 Patient has correct armband on for positive identification. Bed in low position. Call ea light in reach. 01:02 Patient placed in an exam room, on a stretcher, on pulse oximetry. ea 02:00 Missed attempt(s): 22 gauge in left forearm. Bleeding controlled, band aid applied, sg catheter tip intact. 02:05 Inserted saline lock: 22 gauge in left wrist, using aseptic technique. Blood collected. sg 02:34 CT Abd/Pelvis - IV Contrast Only In Process Unspecified. EDMS 03:32 Otto Chicas PA is Hospitalizing Provider. tw4 04:26 No provider procedures requiring assistance completed. Patient admitted, IV remains in ea place. Administered Medications: 01:00 Drug: Pepcid 20 mg Route: IVP; Site: right hand; ea 02:00 Follow up: Response: No adverse reaction ea 01:00 Drug: NS 0.9% 1000 ml Route: IV; Rate: 1 bolus; Site: right hand; ea 04:59 Follow up: Response: No adverse reaction; IV Status: Completed infusion; IV Intake: ea 1000ml 01:01 Drug: Zofran (Ondansetron) 4 mg Route: IVP; Site: right hand; ea 04:59 Follow up: Response: No adverse reaction ea Intake: 04:59 IV: 1000ml; Total: 1000ml. ea Outcome: 03:33 Decision to Hospitalize by Provider. tw4 04:26 Condition: stable ea 04:26 Instructed on the need for admit, Demonstrated understanding of instructions. 04:58 Admitted to ER Hold. Please see [facility] for further documentation. ea 09:00 Admitted to Med/surg accompanied by tech, via wheelchair, with chart, Report called to chelsea Pollock RN 09:00 Condition: stable 09:00 Instructed on the need for admit, Demonstrated understanding of instructions. 09:13 Patient left the ED. iw Signatures: Dispatcher [employer] EDMS Jeronimo Morris RN Rocio Ontiveros RN RN iw Calderon, Audri, RN RN aaChapo Lundberg PA PA cp Moreno, Amanda am2 Antunez, Elena, RN RN ea Wadley, Terrence, MD MD tw4 Kezia Diaz ar5
--- NOTE | 2019-11-25 03:33 | EDPHYS ---
Physician Documentation [facility] Name: Hilary Mcmillan Age: 39 yrs Sex: Female : 1980 Arrival Date: 11/24/2019 Time: 23:58 Bed 7 Private MD: ED Physician Corey Perez HPI: 11/24 00:30 This 39 yrs old Female presents to ER via Ambulatory with complaints of cp Abdominal Pain, Vomiting/Diarrhea. 00:30 The patient presents with abdominal pain in the periumbilical area. in the left upper cp quadrant. 00:30 Onset: The symptoms/episode began/occurred this morning. The symptoms do not radiate. cp 00:30 Associated signs and symptoms: Pertinent positives: nausea, vomiting, and diarrhea, cp Pertinent negatives: blood in stools, constipation, dysuria, fever. 00:30 The symptoms are described as constant. cp Historical: - Allergies: 00:36 NKDA; sg - PMHx: 00:36 UTI; vitmin D def; sg - PSHx: 00:36 D \T\ C; sg - Immunization history:: Adult Immunizations not up to date. - Social history:: Smoking status: Patient denies any tobacco usage or history of. ROS: 00:35 Constitutional: Negative for body aches, chills, fever, poor PO intake. cp 00:35 Eyes: Negative for injury, pain, redness, and discharge. cp 00:35 ENT: Negative for ear pain, sore throat, difficulty swallowing, difficulty handling secretions. 00:35 Cardiovascular: Negative for chest pain. 00:35 Respiratory: Negative for cough, shortness of breath, wheezing. 00:35 Abdomen/GI: Positive for abdominal pain, nausea, vomiting, and diarrhea, Negative for constipation, black/tarry stool, rectal bleeding. 00:35 Back: Negative for pain at rest, pain with movement. 00:35 Skin: Negative for rash. 00:35 Neuro: Negative for altered mental status, headache, weakness. 00:35 All other systems are negative. Exam: 00:33 Constitutional: The patient appears in no acute distress, alert, awake, non-toxic, well cp developed, well nourished. 00:33 Head/Face: Normocephalic, atraumatic. cp 00:33 Eyes: Periorbital structures: appear normal, Conjunctiva: normal, no exudate, no injection, Sclera: no appreciated abnormality, Lids and lashes: appear normal, bilaterally. 00:33 ENT: External ear(s): are unremarkable, Nose: is normal, Mouth: Lips: moist, Oral mucosa: moist, Posterior pharynx: is normal, airway is patent. 00:33 Chest/axilla: Inspection: normal, Palpation: is normal, no crepitus, no tenderness. 00:33 Cardiovascular: Rate: normal, Rhythm: regular. 00:33 Respiratory: the patient does not display signs of respiratory distress, Respirations: normal, no use of accessory muscles, no retractions, labored breathing, is not present. 00:33 Abdomen/GI: Inspection: abdomen appears normal, Bowel sounds: active, all quadrants, Palpation: soft, in all quadrants, moderate abdominal tenderness, in the umbilical area and left upper quadrant, rebound tenderness, is not appreciated, involuntary guarding, is not appreciated. 00:33 Back: pain, is absent. Vital Signs: 00:23 BP 131 / 72; Pulse 92; Resp 17; Temp 98.4(O); Pulse Ox 100% on R/A; Weight 80.29 kg; ar5 Height 5 ft. 4 in. (162.56 cm); Pain 9/10; 03:25 BP 97 / 57; Pulse 80; Resp 18; Pulse Ox 98% ; ea 04:26 BP 103 / 55; Pulse 82; Resp 18; Pulse Ox 100% ; ea 08:00 BP 112 / 73; Pulse 84; Resp 16 S; Pulse Ox 97% on R/A; aa5 00:23 Body Mass Index 30.38 (80.29 kg, 162.56 cm) ar5 MDM: 00:23 Patient medically screened. cp 00:30 Differential diagnosis: Endometriosis, gastritis, non-specific abd pain, pancreatitis, cp Peptic Ulcer Disease, Perf. Duodenal Ulcer, Perf. Gastric Ulcer, Pyelonephritis, Ureterolithiasis, urinary tract infection, colitis. 11/24 00:27 Order name: Basic Metabolic Panel; Complete Time: 01: cp 11/24 01: Interpretation: Normal except: CL 108; CA 8.2. cp 11/24 00:27 Order name: CBC with Diff; Complete Time: : cp 11/24 01: Interpretation: Normal except: WBC 17.7; HGB 11.5; HCT 35.5; MCV 77.1; MCH 25.0; RDW cp 16.1; ROHIT% 82.3; LYM% 10.9; NEUT A 14.6. 11/24 00:27 Order name: Hepatic Function; Complete Time: 01:26 cp 11/24 00:27 Order name: Lipase; Complete Time: 01:26 cp 11/24 01:44 Order name: Urine Dipstick--Ancillary (enter results); Complete Time: 03:30 ar5 11/24 03:30 Interpretation: Normal except: UESTR TRACE; UBLD TRACE; UPROT 1+. tw4 11/24 01:44 Order name: Urine --Ancillary (enter results); Complete Time: 03:30 ar5 11/24 03:30 Interpretation: USPGR >1.030. tw11/24 00:27 Order name: CT Abd/Pelvis - IV Contrast Only; Complete Time: 15:53 cp 11/24 04:05 Order name: Basic Metabolic Panel EDMS 11/24 04:05 Order name: Basic Metabolic Panel EDMS 11/24 04:05 Order name: CBC with Automated Diff EDMS 11/24 04:05 Order name: CBC with Automated Diff EDMS 11/24 04:05 Order name: Magnesium EDMS 11/24 04:05 Order name: Magnesium EDMS 11/24 00:27 Order name: IV Saline Lock; Complete Time: 00:45 cp 11/24 00:27 Order name: Labs collected and sent; Complete Time: 00:45 cp 11/24 00:27 Order name: Urine Dipstick-Ancillary (obtain specimen); Complete Time: 01:43 cp 11/24 00:27 Order name: Urine Test (obtain specimen); Complete Time: 01:42 cp 11/24 04:05 Order name: CONS Physician Consult EDMS 11/24 04:05 Order name: NPO EDMS Administered Medications: 01:00 Drug: Pepcid 20 mg Route: IVP; Site: right hand; ea 02:00 Follow up: Response: No adverse reaction ea 01:00 Drug: NS 0.9% 1000 ml Route: IV; Rate: 1 bolus; Site: right hand; ea 04:59 Follow up: Response: No adverse reaction; IV Status: Completed infusion; IV Intake: ea 1000ml 01:01 Drug: Zofran (Ondansetron) 4 mg Route: IVP; Site: right hand; ea 04:59 Follow up: Response: No adverse reaction ea Disposition: 11/25/19 03:33 Hospitalization ordered by Otto Chicas for Inpatient Admission. Preliminary diagnosis are Unspecified intestinal obstruction, Nausea and vomiting. - Bed requested for Telemetry/MedSurg (Inpatient). - Status is Inpatient Admission. iw - Condition is Stable. - Problem is new. - Symptoms are unchanged. Addendum: 11/28/2019 00:22 Co-signature as Attending Physician, Corey Perez MD I agree with the assessment and t w4 plan of care. Signatures: Dispatcher [employer] EDMS Jeronimo Morris RN MASTER Rocio Mauricio RN RN iw Lasagna, Tonya RN MASTER tl1 Chapo Fitzpatrick PA PA cp Antunez, Elena, RN RN ea Wadley, Terrence, MD MD tw4 Corrections: (The following items were deleted from the chart) 11/24 01:26 01:26 Normal except: CL 108. cp cp 04:55 03:33 Hospitalization Ordered by Otto BURGER for Inpatient Admission. tl1 Preliminary diagnosis is Unspecified intestinal obstruction; Nausea and vomiting. Bed requested for Telemetry/MedSurg (Inpatient). Status is Inpatient Admission. Condition is Stable. Problem is new. Symptoms are unchanged. tw4 05:53 04:55 11/25/2019 03:33 Hospitalization Ordered by Otto BURGER for Inpatient tl1 Admission. Preliminary diagnosis is Unspecified intestinal obstruction; Nausea and vomiting. Bed requested for [facility] ER HOLD. Status is Inpatient Admission. Condition is Stable. Problem is new. Symptoms are unchanged. tl1 08:44 03:31 NG Tube ordered. tw4 aa5 09:13 05:53 11/25/2019 03:33 Hospitalization Ordered by Otto BURGER for Inpatient iw Admission. Preliminary diagnosis is Unspecified intestinal obstruction; Nausea and vomiting. Bed requested for Telemetry/MedSurg (Inpatient). Status is Inpatient Admission. Condition is Stable. Problem is new. Symptoms are unchanged. tl1
[2019-11-25] MEDS ORDERED: ONDANSETRON 4 MG/2 ML VIAL IV PRN (04:03)
[2019-11-25] MEDS ORDERED: LIDOCAINE VISCOUS 2% SOLN 15 ML UDC ONE (04:14)
--- NOTE | 2019-11-25 04:14 | P.HP ---
Certification for Inpatient With expected LOS: >2 Midnights Patient will require the following post-hospital care: None Practitioner: I am a practitioner with admitting privileges, knowledge of patient current condition, hospital course, and medical plan of care. Services: Services provided to patient in accordance with Admission requirements found in Title 42 Section 412.3 of the Code of Federal Regulations <Otto Chicas - Last Filed: 11/25/19 04:08> Patient History Date of Service: 11/25/19 Primary Care Provider: [facility] Reason for admission: Small-bowel obstruction History of Present Illness: 39-year-old female with a past medical history of iron deficiency anemia presents to the emergency room complaining of nausea vomiting and significant abdominal pain. Patient states she had an early dinner around 430 p.m. this afternoon and shortly after started having significant abdominal pain. She went to bed a and woke up with worsening abdominal pain. Had an episode of vomiting and has been nauseous with continued abdominal pain on arrival to ED. In the emergency room patient was given Zofran which helped and her nausea has improved. She continues with abdominal pain. Lab work in the ED shows a white cell count of 17.7 with a hemoglobin of 11.5 and a hematocrit of 35.5. Rest of lab work is fairly unremarkable. CT of the abdomen pelvis shows a small bowel obstruction. Surgery is consulted-Dr. Pedersen. Patient will have NG tube placed and will be evaluated by surgery in the morning. On physical exam the patient is alert and oriented x3. She is in no distress. Has some mild to moderate pain on palpation of the epigastric area of the abdomen. Rest of physical exam is unremarkable. Patient will be admitted and further evaluated. Home medications list reviewed: Yes - Past Medical/Surgical History Diabetic: No -: Iron deficiency anemia -: D&C 2011 Psychosocial/ Personal History: Lives at home with her children - Family History Father -: Heart disease, Lung disease - Social History Smoking Status: Never smoker Alcohol use: Yes CD- Drugs: No Caffeine use: Yes Place of Residence: Home <Otto Chicas - Last Filed: 11/25/19 04:08> Date of Service: 11/29/19 <Maisha Anderson - Last Filed: 11/29/19 05:25> Allergies No Known Drug Allergies Allergy (Verified 12/09/17 15:50) Unknown Home Medications: Cholecalciferol (Vitamin D3) [Vitamin D3] 2,000 unit PO DAILY 12/09/17 Review of Systems General: As per HPI Eyes: Unremarkable ENT: Unremarkable Respiratory: Unremarkable Cardiovascular: Unremarkable Gastrointestinal: Nausea, Vomiting, Abdominal Pain, As per HPI Genitourinary: Unremarkable Musculoskeletal: Unremarkable Neurological: Unremarkable Lymphatics: Unremarkable <Otto Chicas - Last Filed: 11/25/19 04:08> Physical Examination - Vital Signs Temperature: 98.4 F Blood Pressure: 131/72 Pulse: 92 Respirations: 17 Pulse Ox (%): 100 (RA) - Physical Exam General: Alert, In no apparent distress, Oriented x3 HEENT: Atraumatic, Normocephalic, PERRLA, Mucous membr. moist/pink Neck: Supple, No Thyromegaly, Other (Trachea midline) Respiratory: Clear to auscultation bilaterally, Normal air movement Cardiovascular: No edema, Normal pulses, Regular rate/rhythm, Normal S1 S2 Capillary refill: <2 Seconds Gastrointestinal: Hypoactive, Non-distended, Tenderness (Moderate pain with epigastric palpation) Musculoskeletal: No swelling, No contractures, No erythema, No tenderness Integumentary: No breakdown, No significant lesion, No tenderness/swelling Neurological: Normal gait, Normal speech, Normal strength at 5/5 x4 extr, Normal tone, Normal affect - Studies Laboratory Data (last 24 hrs) 11/25/19 00:57: WBC 17.7 H, Hgb 11.5 L, Hct 35.5 L, Plt Count 271 11/25/19 00:57: Sodium 140, Potassium 3.5, BUN 7, Creatinine 0.67, Glucose 100, Total Bilirubin 0.2, AST 18, ALT 34, Alkaline Phosphatase 52, Lipase 76 <Otto Chicas - Last Filed: 11/25/19 04:08> Assessment and Plan - Plan Impression: Small-bowel obstruction: Nausea/vomiting: Iron-deficiency anemia: Plan: Small-bowel obstruction: Patient does not have a prior history of bowel issues. Denies any surgical interventions in the past. CT abdomen pelvis showing suspect small bowel obstruction. Surgery consulted-Dr. Pedersen. NG tube to be placed in the ED. Will keep NPO can have ice chips only. Nausea/vomiting: Continue IV Zofran. Continue NPO. Iron-deficiency anemia: Patient has a history of iron-deficiency anemia. Discharge Plan: Home Plan to discharge in: Greater than 2 days - Advance Directives Does patient have a Living Will: No Does patient have a Durable POA for Healthcare: No - Code Status/Comfort Care Code Status Assessed: Yes Time Spent Managing Pts Care (In Minutes): 55 <Otto Chicas - Last Filed: 11/25/19 04:08> Date of Service: 11/25/19 Patient with small-bowel obstruction. Persistent nausea and vomiting. X-ray shows obstructive pathology. NG tube unsuccessful. Patient will be monitored on the floor closely. NPO at this time and surgery consultation pending. Physical exam: cardiovascular exam regular rate rhythm no murmurs Lungs clear bilaterally Abdomen is distended, tender, bowel sounds negative Neuro: No focal deficits Assessment: 1. Small-bowel obstruction Plan: -management per surgery -DVT prophylaxis -IV hydration and IV antibiotics -NPO -monitor electrolytes and blood count closely -pain control <Maisha Anderson - Last Filed: 11/29/19 05:25>
[2019-11-25] MEDS: NA CHLORIDE 0.9% 1,000 ML IV SCH ×3 (05:00→17:08)
[2019-11-25] MEDS: HEPARIN 5000 UNIT/ML 1 ML VIAL SQ SCH ×2 (09:56→17:08)
[2019-11-25] MEDS: PIPER/TAZO/NS 3.375gm 3.375 GM/100 ML BAG IVPB SCH ×2 (09:56→17:08)
[2019-11-25 10:37] VITALS: BMI 30.4
[2019-11-25 10:42] LABS: Urine Appearance CLEAR; Urine Bilirubin NEGATIVE (NEG); Urine Blood NEGATIVE (NEG); Urine Color YELLOW; Urine Glucose NEGATIVE (NEG); Urine Protein NEGATIVE (NEG); Urine Specific Gravity >=1.030 (1.005-1.030); Urine Urobilinogen 0.2 mg/dL (0.2-1.0)
[2019-11-25 10:43] LABS: Urine Microscopic Reflex NO UMIC
--- NOTE | 2019-11-25 10:49 | CON ---
Date of Consultation: 11/25/2019 Diagnosis: Small bowel obstruction of unknown origin. History Of Present Illness: This is the case of a 39-year-old patient who stated that last night she developed abdominal distention, abdominal pain, vomiting and came to the ER, diagnosed with small-praveen wel obstruction and a surgical consult was obtained. She states she ate some cereal for breakfast, f rozen flake, and ate some leftover rice and pork for the afternoon, and that is when she started feel ing sick. She denies any prior episode of that. Denies any dysuria, hematuria, hematochezia, melena . She denies any recent traveling out of the country. Denies any family member sick at home. Past Medical History: None. Family History: Noncontributory. Social History: She does not smoke. She does not drink alcohol. Review of Systems: Ten points otherwise unremarkable. Physical Examination: General: Patient is awake and alert. HEENT: Pupils are equal and reactive, anicteric. Neck: Supple. Chest: Clear. Abdomen: Soft and depressible. Mildly distended. No guarding or rebound. Mild generalized tendern ess. PELVIC: Deferred. Rectal: Deferred. Breasts: Deferred. Extremities: Good capillary refill. Laboratory Data: Blood work reviewed with elevated white count. Imaging Studies: CAT scan reviewed, shows the findings of small bowel obstruction. Assessment: A 39-year-old patient with small bowel obstruction. No previous surgery. Etiology is u nknown. Plan: She stated that right now she is trying to pass gas and she has had a bowel movement and she f eels better. She understands that we do not know the etiology of this. Right now, we are going to a dmit her, keep her n.p.o., get IV fluid to hydrate her. She understands the options of laparotomy, p ossible bowel resection, possible ostomy with benefits, alternatives, and risks fully explained to he r include, but not limited to infection, bleeding, damage to adjacent structures, anesthesia complica tion, adhesions, CT, even . Obviously, she wants to try conservative treatment because she feel s better. We encouraged ambulation. We are going to repeat the x-ray tomorrow morning and see how s he does clinically. If she improves, then we will advance diet tomorrow. If she gets worse, then sh christopher has to reconsider once again surgical options. MATTY/ERIK Voice ID: [id number] Report ID: [id number]
--- NOTE | 2019-11-25 11:24 | RAD REPORT ---
EXAM DESCRIPTION: CT - Abdomen Pelvis W Contrast - 11/25/2019 6:05 am COMPARISON: None CLINICAL HISTORY: Abdominal pain TECHNIQUE: Multiple helical axial images were obtained through the abdomen and pelvis using intraven ous contrast. Coronal and sagittal reformatted images were obtained. All CT scans at this facility use dose modulation, iterative reconstruction, and/or weight-based dosi ng when appropriate to reduce radiation dose to as low as reasonably achievable. FINDINGS: Lung bases: Appear unremarkable. Liver: Homogenous attenuation is noted. Gallbladder/biliary: Appears unremarkable Pancreas: Unremarkable. No evidence of ductal enlargement. Spleen: Appears unremarkable. No splenomegaly. Adrenals: Unremarkable. Kidneys and ureters: No evidence of hydronephrosis. Normal enhancement. Bladder: Unremarkable. Pelvic organs: Unremarkable. Bowel: Several mildly dilated distal small bowel loops demonstrated containing fluid and fecal materi al. There is a sharp transition between dilated and decompressed distal small bowel in the right lowe r abdomen (series 501, image 62) suggestive of distal small bowel obstruction with kinking of bowel a t the transition point. There is mild mesenteric stranding near dilated distal small bowel loops. No evidence of bowel wall thickening. Appendix appears unremarkable. Vasculature: Unremarkable. Peritoneum: No free air. There is a trace amount of free fluid in the pelvis. Lymph nodes: Unremarkable. Soft tissues: Small fat-containing umbilical hernia is present. Bones: Unremarkable. IMPRESSION: Findings suggestive of distal small bowel obstruction with transition point in the right lower abdomen. Electronically signed by: Edson Hernandez MD 11/25/2019 3:12 AM CDT Due to temporary technical issues with the PACS/Fluency reporting system, reports are being signed by the in house radiologist without review as a courtesy to ensure prompt reporting. The interpreting r adiologist is fully responsible for the content of the report..
[2019-11-25] MEDS ORDERED: KCL 20 MEQ/100 mL IVPB 20 MEQ/100 ML BAG IV SCH (12:00)
[2019-11-26] MEDS: HEPARIN 5000 UNIT/ML 1 ML VIAL SQ SCH ×3 (00:36→17:28)
[2019-11-26] MEDS: PIPER/TAZO/NS 3.375gm 3.375 GM/100 ML BAG IVPB SCH ×3 (00:36→17:27)
[2019-11-26] MEDS: NA CHLORIDE 0.9% 1,000 ML IV SCH ×3 (01:00→20:46)
[2019-11-26 06:06] LABS: BUN Blood Urea Nitrogen 7 mg/dL (7-18); Bicarbonate 26 mmol/L (21-32); Glucose Level 80 mg/dL (74-106); Magnesium 2.2 mg/dL (1.8-2.4); Potassium 3.5 mmol/L (3.5-5.1); Sodium Level 141 mmol/L (136-145)
[2019-11-26 06:15] LABS: Absolute Lymphocytes (CBC) 3.1 K/uL (0.7-4.9); Basophils % 0.6 % (0-1.3); Hematocrit 32.5 % (36.0-45.0); Lymphocytes % 35.6 % (15.3-44.8); MPV 9.6 fL (7.6-11.3); RBC Red Blood Cell Count 4.14 M/uL (3.86-4.86)
[2019-11-26] MEDS ORDERED: KCL 20 MEQ/100 mL IVPB 20 MEQ/100 ML BAG IV SCH (08:00)
--- NOTE | 2019-11-26 15:01 | RAD REPORT ---
EXAM DESCRIPTION: RAD - Abdomen W Erect - 11/26/2019 2:55 pm CLINICAL HISTORY: sbo Pain COMPARISON: Abdomen Pelvis W Contrast dated 11/25/2019 FINDINGS: A few mildly prominent bowel loops are seen in the left lower quadrant. No progression in small bowel obstruction pattern seen. No pneumoperitoneum. No suspicious calcifications.
--- NOTE | 2019-11-26 19:36 | PN ---
Date of Progress Note: 11/26/2019 Reason For Followup: For small bowel obstruction. Subjective: Patient is feeling better. Passing off flatus. Good bowel movement. No abdominal pain . No nausea, no vomiting. Review of Systems: Ten points otherwise unremarkable. Objective: Abdomen: Benign. Imaging: X-ray is still pending. Laboratory Data: WBC count is 8.6. Plan: If x-rays are acceptable and improved, then she is going to advance diet and then discharge ho me with followup with a inside wirer in the weekend, with me in a week. MATTY/ERIK Voice ID: [id number] Report ID: [id number]
[2019-11-27] MEDS: PIPER/TAZO/NS 3.375gm 3.375 GM/100 ML BAG IVPB SCH ×2 (00:52→08:00)
[2019-11-27] MEDS: HEPARIN 5000 UNIT/ML 1 ML VIAL SQ SCH ×2 (01:02→09:14)
[2019-11-27 04:44] LABS: BUN Blood Urea Nitrogen 5 mg/dL (7-18); Bicarbonate 24 mmol/L (21-32); Glucose Level 91 mg/dL (74-106); Potassium 3.3 mmol/L (3.5-5.1); Sodium Level 142 mmol/L (136-145)
[2019-11-27] MEDS ORDERED: POTASSIUM CL SA 10 MEQ TAB PO ONE ×2 (06:00→13:00)
[2019-11-27 09:09] VITALS: O2SAT 97
[2019-11-27] MEDS: NA CHLORIDE 0.9% 1,000 ML IV SCH (09:15)
[2019-11-27 10:15] VITALS: BP 109/54; TEMP 98.5
--- NOTE | 2019-11-29 05:27 | P.PN ---
Subjective Date of Service: 11/26/19 Subjective: Improving (Abdominal symptoms are slightly improved. She has had a little bit of flatus. We will go ahead and start her on clear liquid diet and repeat abdominal films. If these are improved then possible discharge home today or in the morning.) Review of Systems 10-point ROS is otherwise unremarkable Physical Examination - Vital Signs Temperature: 98.5 F Blood Pressure: 109/54 Pulse: 75 Respirations: 16 Pulse Ox (%): 97 - Physical Exam General: Alert, In no apparent distress, Oriented x3 Respiratory: Clear to auscultation bilaterally, Normal air movement Cardiovascular: Regular rate/rhythm, Normal S1 S2, No murmurs Gastrointestinal: Hypoactive, Soft and benign, Non-distended, Tenderness Musculoskeletal: No tenderness Integumentary: No rashes Neurological: Normal speech, Normal tone, Normal affect Lymphatics: No axilla or inguinal lymphadenopathy - Studies Medications List Reviewed: Yes Assessment & Plan - Problems (Diagnosis) (1) SBO (small bowel obstruction) Status: Acute - Plan Plan: 1. Advanced diet as tolerated 2. abdominal film pending 3. If tolerates diet she may get to go home today or in the morning. If she had any nausea or vomiting will keep her NPO. Discharge Plan: Home Plan to discharge in: 48 Hours - Advance Directives Does patient have a Living Will: No Does patient have a Durable POA for Healthcare: No - Code Status/Comfort Care Code Status Assessed: No Code Status: Full Code Critical Care: No Time Spent Managing PTS Care (In Minutes): 30
--- NOTE | 2019-11-29 05:29 | P.DS ---
Discharge Date: 11/27/19 Primary Care Provider: [facility] Disposition: ROUTINE DISCHARGE Discharge Condition: GOOD Reason for Admission: Small-bowel obstruction Consultations: General surgeon - Problems (1) SBO (small bowel obstruction) Status: Acute Brief History of Present Illness: patient is a 39-year-old female came to the hospital with abdominal pain. She was distended and severely tender. X-rays revealed a small-bowel obstruction. Patient had NG tube placed in the ER. It came out in the emergency room. They were not able to place another 1 because of her discomfort. She was admitted for further evaluation. Hospital Course: Patient's symptoms improved over the course of the hospital stay. She was able to tolerate a liquid diet. Surgeon wants to see her in the office in 1 week. At this time she is stable for discharge home. Repeat abdominal film shows that there is some air but no obvious obstruction any more. Patient is stable for discharge. She is having flatus and has moved her bowels. Return to the ER for symptoms worsen. Vital Signs/Physical Exam: Temp Pulse Resp BP Pulse Ox 98.5 F 75 16 109/54 L 97 11/29/19 05:27 11/29/19 05:27 11/29/19 05:27 11/29/19 05:27 11/29/19 05:27 General: Alert, In no apparent distress, Oriented x3 Laboratory Data at Discharge: WBC 8.6 K/uL (4.3-10.9) D 11/26/19 05:11 Hgb 10.5 g/dL (12.0-15.0) L 11/26/19 05:11 Hct 32.5 % (36.0-45.0) L 11/26/19 05:11 Plt Count 249 K/uL (152-406) 11/26/19 05:11 Sodium 142 mmol/L (136-145) 11/27/19 04:13 Potassium 3.9 mmol/L (3.5-5.1) 11/27/19 12:02 BUN 5 mg/dL (7-18) L 11/27/19 04:13 Creatinine 0.64 mg/dL (0.55-1.3) 11/27/19 04:13 Glucose 91 mg/dL (74-106) 11/27/19 04:13 Magnesium 2.2 mg/dL (1.8-2.4) 11/26/19 05:11 Total Bilirubin 0.2 mg/dL (0.2-1.0) 11/25/19 00:57 AST 18 U/L (15-37) 11/25/19 00:57 ALT 34 U/L (12-78) 11/25/19 00:57 Alkaline Phosphatase 52 U/L (45-117) 11/25/19 00:57 Lipase 76 U/L (73-393) 11/25/19 00:57 Home Medications: Cholecalciferol (Vitamin D3) [Vitamin D3] 2,000 unit PO DAILY 12/09/17 Patient Discharge Instructions: OK TO DC IV AND DC HOME. FOLLOW-UP WITH PRIMARY CARE PROVIDER IN 1-2 WEEKS. FOLLOW-UP WITH General surgery, Dr. Pedersen, IN 1 WEEK. RETURN TO THE ER IF symptoms worsen. CALL or TEXT DR. FITZGERALD AT [phone] IF ANY QUESTIONS REGARDING HOSPITAL STAY. PLEASE CALL THE FLOOR AT [phone] IF ANY MEDICATION OR NURSING QUESTIONS. Diet: Regular Activity: Fall precautions Followup: Fab Pedersen MD [ACTIVE - CAN ADMIT] - 1 Week (Call to make an appointment. ) Time spent managing pt's care (in minutes): 25
== END 2019-11-27 13:29 | disposition home or self-care (01) | DRG 390 ==
LOC: ER 23:55 → ERHOLD 11-25 04:01 → 2ND 11-25 08:01
PROVIDERS: ADMIT Hospitalist; ATTEND Hospitalist
DX: K56.609 Unspecified intestinal obstruction, unspecified as to partial versus complete obstruction (principal); D50.9 Iron deficiency anemia, unspecified
CPT/HCPCS: 36415; 74019; 74177; 80048; 80076; 81003; 81025; 83690; 83735; 84132; 85025; 96361; 96374; 96375; 99285; J1644; J2405; J2543; J3480; J7030; Q9967; U0002

== ENCOUNTER 2020-10-23 13:22 | Emergency (ER) | payer SELFPAY ==
--- NOTE | 2020-10-23 15:19 | RAD REPORT ---
EXAM DESCRIPTION: Shoulder Right 2 View - 10/23/2020 3:01 pm CLINICAL HISTORY: PAIN COMPARISON: No comparisons TECHNIQUE: Internal and external rotation views of the right shoulder were obtained. FINDINGS: There is no fracture or dislocation. AC joint is normal in appearance. No acute or suspic ious findings. IMPRESSION: Negative two-view right shoulder examination.
--- NOTE | 2020-10-23 15:25 | ER ---
Nurse's Notes [facility] Name: Hilary Mcmillan Age: 40 yrs Sex: Female : 1980 Arrival Date: 10/23/2020 Time: 13:25 Bed 15 Private MD: Diagnosis: Pain in right shoulder;Sprain of shoulder joint Presentation: 10/23 14:22 Chief complaint: Patient states: R shoulder pain x 5 days. Hx of R shoulder injury 4 - ca1 5 yrs ago. Coronavirus screen: Client denies travel out of the [place] in the last 14 days. At this time, the client does not indicate any symptoms associated with coronavirus-19. Ebola Screen: Patient negative for fever greater than or equal to 101.5 degrees Fahrenheit, and additional compatible Ebola Virus Disease symptoms Patient denies exposure to infectious person. Patient denies travel to an Ebola-affected area in the 21 days before illness onset. No symptoms or risks identified at this time. Initial Sepsis Screen: Does the patient meet any 2 criteria? No. Patient's initial sepsis screen is negative. Does the patient have a suspected source of infection? No. Patient's initial sepsis screen is negative. Risk Assessment: Do you want to hurt yourself or someone else? Patient reports no desire to harm self or others. Onset of symptoms was October 23, 2020. 14:22 Method Of Arrival: Ambulatory ca1 14:22 Acuity: USHA 4 ca1 NATIONAL SALES: 14:25 LMP N/A - control method ca1 Historical: - Allergies: 14:24 NKDA; ca1 - PMHx: 14:24 vitmin D def; UTI; ca1 - Immunization history:: Client reports having NOT received the Covid vaccine. Flu vaccine is not up to date. - Social history:: Smoking status: Patient denies any tobacco usage or history of. Screenin:42 Abuse screen: Denies threats or abuse. Denies injuries from another. Nutritional tr6 screening: No deficits noted. Tuberculosis screening: No symptoms or risk factors identified. Fall Risk Fall in past 12 months (25 points). Assessment: 14:42 Reassessment: bedside xray. General: Appears in no apparent distress. comfortable, tr6 Behavior is calm, cooperative, appropriate for age. Pain: Complains of pain in right shoulder. Neuro: No deficits noted. Cardiovascular: No deficits noted. Respiratory: No deficits noted. GI: No deficits noted. : No deficits noted. EENT: No deficits noted. Derm: No deficits noted. Musculoskeletal: Reports pain in right shoulder. Vital Signs: 14:22 BP 135 / 86; Pulse 78; Resp 19 S; Temp 97.9(TE); Pulse Ox 99% on R/A; Weight 85.28 kg ca1 (R); Height 5 ft. 4 in. (162.56 cm) (R); Pain 7/10; 14:22 Body Mass Index 32.27 (85.28 kg, 162.56 cm) ca1 ED Course: 13:25 Patient arrived in ED. rg4 14:04 Gabrielle Choudhury, RN is Primary Nurse. tr6 14:05 Charles Dawson PA is PHCP. jr8 14:05 Diogo Leigh MD is Attending Physician. jr8 14:24 Triage completed. ca1 14:24 Arm band placed on right wrist. ca1 14:42 No apparent distress. Resting quietly. tr6 14:42 Patient has correct armband on for positive identification. Bed in low position. Call tr6 light in reach. Side rails up X 1. Door closed. Noise minimized. Visitors limited. Lights dimmed. Moved to private room. 14:42 No provider procedures requiring assistance completed. tr6 15:00 XRAY Shoulder RIGHT 2 view In Process Unspecified. EDMS 15:25 Ronald Kirkland MD is Referral Physician. jr8 Administered Medications: No medications were administered Outcome: 15:25 Discharge ordered by . jr8 15:52 Patient left the ED. tr6 Signatures: Dispatcher [employer] EDMS Charles Dawson PA PA jr8 Kassi Valdovinos rg4 Michelle Waters RN RN ca1 Gabrielle Choudhury, MASTER RN tr6
--- NOTE | 2020-10-23 15:25 | EDPHYS ---
Physician Documentation [facility] Name: Hilary Mcmillan Age: 40 yrs Sex: Female : 1980 Arrival Date: 10/23/2020 Time: 13:25 Bed 15 Private MD: ED Physician Diogo Leigh HPI: 10/23 14:35 This 40 yrs old Female presents to ER via Ambulatory with complaints of jr8 Shoulder Injury. 14:35 The patient or guardian complains of decreased range of motion, pain. right shoulder. jr8 Context: The problem was sustained at work, resulted from lifting or carrying, a heavy object, The patient experiences decreased range of motion, when attempts to raise arm, The patient reports no obvious deformity. Onset: The symptoms/episode began/occurred acutely. Modifying factors: the symptoms are alleviated by nothing. The symptoms are aggravated by movement. Associated signs and symptoms: The patient has no apparent associated signs or symptoms. Severity of symptoms: At their worst the symptoms were moderate, in the emergency department the symptoms are unchanged. The patient has not experienced similar symptoms in the past. The patient has not recently seen a physician. 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 Flu vaccine is not up to date. - Social history:: Smoking status: Patient denies any tobacco usage or history of. ROS: 14:35 Eyes: Negative for injury, pain, redness, and discharge, ENT: Negative for injury, jr8 pain, and discharge, Neck: Negative for injury, pain, and swelling, Cardiovascular: Negative for chest pain, palpitations, and edema, Respiratory: Negative for shortness of breath, cough, wheezing, and pleuritic chest pain, Abdomen/GI: Negative for abdominal pain, nausea, vomiting, diarrhea, and constipation, Back: Negative for injury and pain, Skin: Negative for injury, rash, and discoloration, Neuro: Negative for headache, weakness, numbness, tingling, and seizure. 14:35 MS/extremity: Positive for decreased range of motion, pain, tenderness, of the right shoulder. Exam: 14:35 Constitutional: This is a well developed, well nourished patient who is awake, alert, jr8 and in no acute distress. Chest/axilla: Normal chest wall appearance and motion. Nontender with no deformity. No lesions are appreciated. Cardiovascular: Regular rate and rhythm with a normal S1 and S2. No gallops, murmurs, or rubs. Normal PMI, no JVD. No pulse deficits. Respiratory: Lungs have equal breath sounds bilaterally, clear to auscultation and percussion. No rales, rhonchi or wheezes noted. No increased work of breathing, no retractions or nasal flaring. Skin: Warm, dry with normal turgor. Normal color with no rashes, no lesions, and no evidence of cellulitis. Neuro: Awake and alert, GCS 15, oriented to person, place, time, and situation. Cranial nerves II-XII grossly intact. Motor strength 5/5 in all extremities. Sensory grossly intact. 14:35 Musculoskeletal/extremity: Extremities: grossly normal except: noted in the right shoulder: Pain with abduction of right arm. Negative "beer can" test. , ROM: full active range of motion, in all extremities, limited passive range of motion, in the right arm, limited active range of motion due to pain, in the right arm, limited passive range of motion due to pain, in the right arm, Circulation is intact in all extremities. Sensation intact. Vital Signs: 14:22 BP 135 / 86; Pulse 78; Resp 19 S; Temp 97.9(TE); Pulse Ox 99% on R/A; Weight 85.28 kg ca1 (R); Height 5 ft. 4 in. (162.56 cm) (R); Pain 7/10; 14:22 Body Mass Index 32.27 (85.28 kg, 162.56 cm) ca1 MDM: 14:16 Patient medically screened. jr8 14:35 Data reviewed: vital signs, nurses notes, radiologic studies, plain films. Data jr8 interpreted: Pulse oximetry: on room air is 99 %. Interpretation: normal. Counseling: I had a detailed discussion with the patient and/or guardian regarding: the historical points, exam findings, and any diagnostic results supporting the discharge/admit diagnosis, radiology results, the need for outpatient follow up, a orthopedic surgeon, to return to the emergency department if symptoms worsen or persist or if there are any questions or concerns that arise at home. 10/23 14:34 Order name: XRAY Shoulder RIGHT 2 view; Complete Time: 15:25 jr8 Administered Medications: No medications were administered Disposition: 17:00 Co-signature as Attending Physician, Diogo Leigh MD. rn Disposition Summary: 10/23/20 15:25 Discharge Ordered Location: Home jr8 Problem: new jr8 Symptoms: have improved jr8 Condition: Stable jr8 Diagnosis - Pain in right shoulder jr8 - Sprain of shoulder joint jr8 Followup: jr8 - With: Ronald Kirkland MD - When: 1 week - Reason: Recheck today's complaints, Continuance of care, Re-evaluation by your physician Discharge Instructions: - Discharge Summary Sheet jr8 - Rotator Cuff Tear jr8 - Shoulder Pain jr8 Forms: - Medication Reconciliation Form jr8 - Thank You Letter jr8 - Antibiotic Education jr8 - Prescription Opioid Use jr8 Prescriptions: - meloxicam 15 mg Oral tablet - take 1 tablet by ORAL route once daily As needed; 20 tablet; Refills: 0, jr8 Product Selection Permitted Signatures: Dispatcher [employer] EDDioog Hill MD MD rn Roszak, Josh, PA PA jr8 Michelle Waters RN RN ca1
[2020-10-23 15:56] VITALS: BP 135/86; TEMP 97.9; O2SAT 99
== END 2020-10-23 15:52 | disposition home or self-care (01) ==
LOC: ER 13:22
DX: S43.401A Unspecified sprain of right shoulder joint, initial encounter (principal); X50.0XXA Overexertion from strenuous movement or load, initial encounter; Y93.89 Activity, other specified; Y92.89 Other specified places as the place of occurrence of the external cause; Y99.8 Other external cause status
CPT/HCPCS: 99282

== ENCOUNTER 2021-05-25 10:37 | Emergency (ER) | payer SELFPAY ==
--- OUTSIDE RECORDS SUMMARY | 2021-05-25 10:40 | XMS REPORT | Continuity of Care Document ---
:1980 Author Organization [facility] t Address [address] [place] [address] Care Team Providers Name Role Phone Unavailable Unavailable Unavailable Problems This patient has no known problems. Allergies, Adverse Reactions, Alerts This patient has no known allergies or adverse reactions. Medications This patient has no known medications. Procedures This patient has no known procedures. Results Test Description Test Time Test Comments Results Result Comments Source VITAMIN B 12 AND FOLIC ACID 2021-05-04 06:29:13 Test Item Value Reference Range Interpretation Comme nts VITAMIN B-12 (test code = 596 PG/ML [phone]) FOLIC ACID (test code = 2695) 10.0 UG/L SEE BELOW INTERPRETIVE RA NGES DEFICIENCY . . . . . . . . . . . . . . . UG/L <4.0 POSSIBLE DEFICI ENCY. . . . . . . . . . . UG/L 4.0-5.9 SUFFICIENT . . . . . . . . . . . . . . . UG/L >=6.0 [id number] 05:55:42 Test Item Value Reference Range Interpretation Comments RPR RESULT (test NON-REACTIVE NON-REACTIVE code = 3501) RPR TITER (test NOT INDIC. NOT INDIC. UNLES S OTHERWISE code = 3500) TITER INDICATED, ALL TESTING PERFORMED [facility] [address] [place] [address] 4 LABORATORY DI MURRAY: Jeni PADRON [id number] CAP ACCREDITATION N O. [id number] SARMAD AUTOIMMUNE [id number] 05:44:20 Test Item Value Reference Range Interpretation Comments ANTI-NUCLEAR NEGATIVE NEGATIVE Methodolo gy is ANTIBODIES (test Indirect code = 3506) Immunofluoresce nt Assay (IFA) with a titering system using He p2000 cells (Hep2 kaveh ls transfected with SS-A/Ro). SJOGREN'S SS-A <0.2 AI <1.0 ANTIBODY (test code = 96826) SJOGREN'S SS-B <0.2 AI <1.0 ANTIBODY (test code = 59320) BRAND (Sm) ANTIBODY <0.2 AI <1.0 (test code = 53876) AUTOMATIC THREAD WINDER ANTIBODY (test <0.2 AI <1.0 code = 17887) SCL-70 ANTIBODY <0.2 AI <1.0 (test code = 4606) Mari-1 ANTIBODY (test <0.2 AI <1.0 code = 4680) CENTROMERE B <0.2 AI <1.0 ANTIBODY (test code = 4630) RIBOSOMAL P <0.2 AI <1.0 ANTIBODY (test code = 40334) CHROMATIN ANTIBODY <0.2 AI <1.0 (test code = 24409) THYROID PEROXIDASE 1 IU/ML <9 AB (test code = 55779) COMPLEMENT C3 (test 120 MG/DL 90-180 code = 3509) COMPLEMENT C4 (test 22 MG/DL 10-40 code = 3510) RHEUMATOID FACTOR, 198 IU/ML <14 H QUANT (test code = 3502) dsDNA ANTIBODY 9.0 IU/ML SEE BELOW H NEG ATIVE . . . (test code = 4287) . . . . . . . . . . . IU/ML <=4.9 INDETERMINA TE. . . . . . . . . . . . IU/ML 5.0-9.0 POSITIVE . . . . . . . . . . . . . . IU/ ML >=10.0 CCP IgG (test code 80.7 U/ML <3.0 H = 03972) INTERPRETIVE IN FORMATION INTERPRETATION RESULT NEGATIVE <3.0 U/ML POSITIVE >=3.0 U/ML COMPREHENSIVE METABOLIC [id number] 05:02:35 Test Item Value Reference Range Interpretation Comments GLUCOSE (test code = 72 MG/DL 70-99 2216) BUN (test code = 13 MG/DL 6-20 2207) CREATININE (test 1.02 MG/DL 0.60-1.30 code = 2214) eGFR (2020 CKD-EPI) 72 ML/MIN/1.73 >60 (test code = 51979) CALC BUN/CREAT (test 13 RATIO 6-28 code = 223) SODIUM (test code = 142 MEQ/L 044-359 0614) POTASSIUM (test code 3.7 MEQ/L 3.5-5.4 = 2227) CHLORIDE (test code 105 MEQ/L 95-107 = 2214) CARBON DIOXIDE (test 25 MEQ/L 19-31 code = 220) CALCIUM (test code = 9.6 MG/DL 8.5-10.5 2208) PROTEIN, TOTAL (test 8.1 G/DL 6.1-8.3 code = 222) ALBUMIN (test code = 4.4 G/DL 3.5-5.2 2200) CALC GLOBULIN (test 3.7 G/DL 1.9-3.7 code = 224) CALC A/G RATIO (test 1.2 RATIO 1.0-2.6 code = 2233) BILIRUBIN, TOTAL <0.2 MG/DL See_Comment [Automated message] (test code = 2206) The [employer] which generated this result transmit guy reference range : <=1.2. The refe rence range was not u sed to interpret th is result as normal/abnormal . ALKALINE PHOSPHATASE 68 U/L 40-112 (test code = 2203) AST (test code = 14 U/L 9-40 2217) ALT (test code = 11 U/L 5-40 2218) HEMOGLOBIN [id number] 03:27:51 Test Item Value Reference Range Interpretation Comments HEMOGLOBIN A1c (test code = 04884) 5.7 % 4.2-5.6 H CBC W/AUTO DIFF WITH [id number] 02:26:01 Test Item Value Reference Range Interpretation Comments WBC (test code = 13.0 K/UL 3.5-11.0 H 1001) RBC (test code = 4.73 M/UL 3.80-5.40 1002) HEMOGLOBIN (test code 12.9 G/DL 11.5-15.5 = 1003) HEMATOCRIT (test code 39.2 % 34.0-45.0 = 1004) MCV (test code = 82.9 fL 80.0-99.0 1005) MCH (test code = 27.3 PG 25.0-33.0 1006) MCHC (test code = 32.9 G/DL 31.0-36.0 1007) RDW (test code = 13.3 % 11.5-15.0 1038) NEUTROPHILS (test 67.7 % code = 1008) LYMPHOCYTES (test 22.5 % code = 1010) MONOCYTES (test code 7.0 % = 1011) EOSINOPHILS (test 1.8 % code = 1012) BASOPHILS (test code 0.8 % = 1013) IMMATURE GRANYLOCYTES 0.2 % (test code = 1036) NUCLEATED RBCS (test 0.0 /100 See_Comment [Autom ated code = 1065) WBC'S message] The sy stem which generated this result transmitted reference range : 0.0. The refere nce range was not u sed to interpret th is result as normal/abnormal . PLATELET COUNT (test 331 K/UL 130-400 code = 1015) ABSOLUTE NEUTROPHILS 8.75 K/UL 1.50-7.50 H (test code = 1066) ABSOLUTE LYMPHOCYTES 2.92 K/UL 1.00-4.00 (test code = 1067) ABSOLUTE MONOCYTES 0.91 K/UL 0.20-1.00 (test code = 1068) ABSOLUTE EOSINOPHILS 0.23 K/UL 0.00-0.50 (test code = 1040) ABSOLUTE BASOPHILS 0.11 K/UL 0.00-0.20 (test code = 1069) ABS IMMATURE 0.03 K/UL 0.00-0.10 GRANULOCYTES (test code = 1020) ABS NUCLEATED RBCS 0.00 K/UL 0.00-0.11 (test code = 49291)
[2021-05-25 13:06] LABS: Absolute Lymphocytes (CBC) 2.8 K/uL (0.7-4.9); Hematocrit 36.5 % (36.0-45.0); Lymphocytes % 25.4 % (15.3-44.8); MPV 8.9 fL (7.6-11.3); RBC Red Blood Cell Count 4.41 M/uL (3.86-4.86)
[2021-05-25] MEDS ORDERED: METHYLPREDNISOLONE 125 MG INJ ONE (13:06)
[2021-05-25 13:32] LABS: BUN Blood Urea Nitrogen 12 mg/dL (7-18); Bicarbonate 24 mmol/L (21-32); Glucose Level 87 mg/dL (74-106); Potassium 3.8 mmol/L (3.5-5.1); Sodium Level 137 mmol/L (136-145)
--- NOTE | 2021-05-25 14:48 | RAD REPORT ---
EXAM DESCRIPTION: US - Extremity Venous Uni Ltd - 05/25/2021 2:39 pm CLINICAL HISTORY: Pain;Swelling COMPARISON: None. TECHNIQUE: Real-time sonographic evaluation of the right lower extremity deep venous systems was per formed. FINDINGS: Normal compressibility, flow augmentation, phasic flow and spontaneous flow are identified in the right lower extremity common femoral, superficial femoral, popliteal and posterior tibial vei ns. No intraluminal filling defects seen. A 4.5 x 1.4 centimeter right popliteal fossa cyst is present. No cyst rupture or hemorrhage findings. IMPRESSION: No DVT in the right lower extremity. 4.5 centimeter popliteal fossa cyst is present without rupture or hemorrhage findings.
--- NOTE | 2021-05-25 14:52 | ER ---
Nurse's Notes [facility] Name: Hilary Mcmillan Age: 40 yrs Sex: Female : 1980 Arrival Date: 05/25/2021 Time: 10:42 Bed 20 Private MD: Diagnosis: Myalgia Presentation: 05/25 10:59 Chief complaint: Patient states: Entire body pains for 6 months off/on. Saw [place] [address] clinic 3 weeks ago. Blood work showed elevated WBC and elevated rheumatoid factors. Swelling noted to R knee. Coronavirus screen: Vaccine status: Patient reports being unvaccinated. Client denies travel out of the [place] in the last 14 days. At this time, the client does not indicate any symptoms associated with coronavirus-19. Ebola Screen: Patient denies travel to an Ebola-affected area in the 21 days before illness onset. Initial Sepsis Screen: Does the patient meet any 2 criteria? No. Patient's initial sepsis screen is negative. Does the patient have a suspected source of infection? Yes: Bone or joint infection. Risk Assessment: Do you want to hurt yourself or someone else? Patient reports no desire to harm self or others. Onset of symptoms was December 13, 2020. 10:59 Method Of Arrival: Ambulatory [facility] 10:59 Acuity: USHA 4 ll1 Triage Assessment: 11:02 General: Appears uncomfortable, Behavior is calm, cooperative, appropriate for age. ll1 Pain: Complains of pain in all over. Musculoskeletal: Reports pain in all over. 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 - Social history:: Smoking status: Patient denies any tobacco usage or history of. Screenin:17 Abuse screen: Denies threats or abuse. Denies injuries from another. Nutritional sf1 screening: No deficits noted. Tuberculosis screening: No symptoms or risk factors identified. Fall Risk None identified. Assessment: 11:17 General: Appears uncomfortable, Behavior is cooperative. Pain: Complains of pain in sf1 right knee, pt reported generalize pain all over body and that right knee is swollen. Musculoskeletal: Reports weakness in generlize pain and weakness. Vital Signs: 10:59 BP 145 / 73; Pulse 85; Resp 18; Temp 97.2; Pulse Ox 100% ; Weight 84.37 kg; Height 5 ll1 ft. 4 in. (162.56 cm); Pain 7/10; 13:20 BP 113 / 63; Pulse 81; Resp 18; Pulse Ox 100% on R/A; perez 10:59 Body Mass Index 31.93 (84.37 kg, 162.56 cm) ll1 ED Course: 10:42 Patient arrived in ED. rg4 11:01 Triage completed. ll1 11:02 Arm band placed on Patient placed in an exam room, on a stretcher. ll1 11:09 [facility]C [facility] kb 11:09 Chapo Maldonado MD is Attending Physician. kb 11:17 Patient has correct armband on for positive identification. Bed in low position. sf1 11:17 No provider procedures requiring assistance completed. sf1 12:08 COVID-19 SARS RT PCR (Document "Date of Onset" if Symptomatic) Sent. sf1 14:32 US Extremity Venous Unilateral Ltd In Process Unspecified. EDMS 15:06 IV discontinued, intact, Pressure dressing applied. perez Administered Medications: 13:06 Drug: SOLU-Medrol (methylPrednisoLONE) 125 mg Route: IVP; Site: left antecubital; perez 13:07 Follow up: Response: No adverse reaction perez 15:01 Drug: Ketorolac 15 mg Route: IVP; Site: left antecubital; perez 15:02 Follow up: Response: No adverse reaction perez Outcome: 14:52 Discharge ordered by . kb 15:05 Discharged to home perez 15:05 Condition: good 15:05 Discharge instructions given to patient, Prescriptions given X 1. 15:06 Patient left the ED. perez Signatures: Dispatcher [employer] EDMS Naomi Casas FNP-C FNP-Ckb Garcia, Rubi rg4 Joanne Cisse RN RN ll1 Mimi Negrete RN RN perez Saranya Mendez RN RN sf1
--- NOTE | 2021-05-25 14:52 | EDPHYS ---
Physician Documentation [facility] Name: Hilary Mcmillan Age: 40 yrs Sex: Female : 1980 Arrival Date: 05/25/2021 Time: 10:42 Bed 20 Private MD: HERMES Physician Chapo Maldonado HPI: 05/25 13:50 This 40 yrs old Female presents to ER via Ambulatory with complaints of Pain kb All Over. 13:50 Pt reports joint pain that has been going on intermittently for 6 months. States kb recently she has had fevers and fatigue as well. Today she has swelling to right knee. States she is being working up for RA and lupus by pcp. Onset: The symptoms/episode began/occurred 6 month(s) ago. Severity of symptoms: At their worst the symptoms were moderate in the emergency department the symptoms are unchanged. The patient has not experienced similar symptoms in the past. The patient has not recently seen a physician. 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 - Social history:: Smoking status: Patient denies any tobacco usage or history of. ROS: 13:41 Respiratory: Negative for shortness of breath, cough, wheezing, and pleuritic chest kb pain. 13:41 Constitutional: Positive for body aches, fever, Negative for chills, fatigue, malaise, poor PO intake, weight loss. 13:41 MS/extremity: Positive for swelling, of the right knee. 13:41 All other systems are negative. Exam: 13:41 Constitutional: This is a well developed, well nourished patient who is awake, alert, kb and in no acute distress. Head/Face: Normocephalic, atraumatic. ENT: Moist Mucous membranes Cardiovascular: Regular rate and rhythm with a normal S1 and S2. No gallops, murmurs, or rubs. No pulse deficits. Respiratory: Respirations even and unlabored. No increased work of breathing. Talking in full sentences Skin: Warm, dry with normal turgor. Normal color. Neuro: Awake and alert, GCS 15, oriented to person, place, time, and situation. Moves all extremities. Normal gait. Psych: Awake, alert, with orientation to person, place and time. Behavior, mood, and affect are within normal limits. 13:41 Musculoskeletal/extremity: Extremities: grossly normal except: noted in the right knee: swelling, ROM: intact in all extremities, Circulation is intact in all extremities. Sensation intact. Weight bearing: able to fully bear weight. Vital Signs: 10:59 BP 145 / 73; Pulse 85; Resp 18; Temp 97.2; Pulse Ox 100% ; Weight 84.37 kg; Height 5 ll1 ft. 4 in. (162.56 cm); Pain 7/10; 13:20 BP 113 / 63; Pulse 81; Resp 18; Pulse Ox 100% on R/A; perez 10:59 Body Mass Index 31.93 (84.37 kg, 162.56 cm) ll1 MDM: 11:09 Patient medically screened. kb 13:40 Data reviewed: vital signs, nurses notes. Data interpreted: Pulse oximetry: on room air kb is 100 %. Interpretation: normal. 14:51 Counseling: I had a detailed discussion with the patient and/or guardian regarding: the kb historical points, exam findings, and any diagnostic results supporting the discharge/admit diagnosis, lab results, radiology results, the need for outpatient follow up, a family practitioner, to return to the emergency department if symptoms worsen or persist or if there are any questions or concerns that arise at home. 05/25 11:47 Order name: CBC with Diff; Complete Time: 13:09 kb 05/25 11:47 Order name: Basic Metabolic Panel; Complete Time: 13:33 kb 05/25 11:47 Order name: COVID-19 SARS RT PCR (Document "Date of Onset" if Symptomatic); Complete kb Time: 13:04 05/25 11:47 Order name: TSH; Complete Time: 13:33 kb 05/25 13:34 Order name: US Extremity Venous Unilateral Ltd; Complete Time: 14:51 kb 05/25 11:47 Order name: IV Start; Complete Time: 13:06 kb Administered Medications: 13:06 Drug: SOLU-Medrol (methylPrednisoLONE) 125 mg Route: IVP; Site: left antecubital; perez 13:07 Follow up: Response: No adverse reaction perez 15:01 Drug: Ketorolac 15 mg Route: IVP; Site: left antecubital; perez 15:02 Follow up: Response: No adverse reaction perez Disposition: 15:23 Co-signature as Attending Physician, Chapo Maldonado MD I agree with the assessment and roscoe plan of care. Disposition Summary: 05/25/21 14:52 Discharge Ordered Location: Home kb Condition: Stable kb Diagnosis - Myalgia kb Followup: kb - With: Emergency Department - When: As needed - Reason: Worsening of condition Followup: kb - With: Private Physician - When: 2 - 3 days - Reason: Recheck today's complaints, Continuance of care, Re-evaluation by your physician Discharge Instructions: - Discharge Summary Sheet kb - Joint Pain, [id number] kb Forms: - Medication Reconciliation Form kb - Thank You Letter kb - Antibiotic Education kb - Prescription Opioid Use kb Prescriptions: - Prednisone 20 mg Oral Tablet - take 1 tablet by ORAL route once daily for 5 days; 5 tablet; Refills: 0, kb Product Selection Permitted Signatures: Dispatcher [employer] EDNaomi Dang, CERTIFIED HYPERBARIC TECHNOLOGIST-C CERTIFIED HYPERBARIC TECHNOLOGIST-Chapo Joe MD MD cha Lewis, Lynsay RN RN ll1 Mimi Negrete RN RN Saranya Wilson RN RN sf1
[2021-05-25] MEDS ORDERED: KETOROLAC 30 MG/ML INJ ONE (14:58)
[2021-05-25 15:17] VITALS: BP 113/63; O2SAT 100
[2021-05-25 15:18] VITALS: TEMP 97.2
== END 2021-05-25 15:06 | disposition home or self-care (01) ==
LOC: ER 10:37
DX: M79.10 Myalgia, unspecified site (principal); Z20.822 Contact with and (suspected) exposure to COVID-19
CPT/HCPCS: 36415; 80048; 84443; 85025; 93971; 96374; 96375; 99284; J2930; U0003